=== PATIENT | female | born 1990 | race Asian ===

== ENCOUNTER → 2016-12-05 | Outpatient (CLI) | payer OTHER | END | disposition home or self-care (01) | LOC: C.PAPS 13:21 | PROVIDERS: ATTEND Obstetrics & Gynecology | DX: Z12.4 Encounter for screening for malignant neoplasm of cervix (principal) ==

== ENCOUNTER → 2016-12-20 | Outpatient (CLI) | payer OTHER ==
[2016-12-20 12:18] LABS: URINE APPEARANCE CLOUDY (CLEAR); URINE BILIRUBIN NEG (NEG); URINE COLOR DK YELLOW; URINE EPITHELIAL CELL AUTO >30 /lpf (0-5); URINE NITRITE NEG (NEG); URINE PH 7.5 (4.5-7.5); URINE SPECIFIC GRAVITY 1.028 (1.000-1.030); UROBILINOGEN NEG (NEG)
[2016-12-20 12:21] LABS: MANUAL MICROSCOPIC REQUIRED? NO; REVIEW REQ? YES
== END | disposition home or self-care (01) ==
LOC: C.LABSPEC 11:29
PROVIDERS: ATTEND Obstetrics & Gynecology
DX: R39.9 Unspecified symptoms and signs involving the genitourinary system (principal)

== ENCOUNTER → 2017-01-20 | Outpatient (CLI) | payer OTHER ==
[2017-01-20 13:41] LABS: GTGD 50 Grams
[2017-01-21 14:02] LABS: AFP CONCENTRATION 27.6 NG/ML; AFP MULTIPLE OF MEDIAN 0.73; AFPTS GESTATIONAL AGE 16.1 WEEKS; AFPTS INSULIN DEP DIABETIC? NO; AFPTS MATERNAL WT 121 LBS; ESTRIOL MULTIPLE OF MEDIAN 0.85; HISTORY OF NTD NO; INHIBIN A 174 PG/ML; INHIBIN A MOM 0.87; REPEAT SAMPLE? NO; hCG MULTIPLE OF MEDIAN 0.74
== END | disposition home or self-care (01) ==
LOC: C.LAB1850 09:17
PROVIDERS: ATTEND Obstetrics & Gynecology
DX: Z34.82 Encounter for supervision of other normal pregnancy, second trimester (principal)

== ENCOUNTER 2017-02-09 18:12 | Emergency (ER) | payer OTHER ==
[~2017-02-09] VITALS: Ht 160 cm; Wt 64.6 kg
[2017-02-09 18:22] VITALS: TEMP 36.6; Ht 160 cm; Wt 64.6 kg
[2017-02-09] MEDS ORDERED: SODIUM CHLORIDE 0.9% 1000ML 1,000 ML IV STA ×2 (18:35→19:33)
[2017-02-09 18:57] LABS: BASO % 0.1 %; BASO ABS # 0.01 K/uL (0-0.2); EOS % 0.6 %; EOS ABS # 0.05 K/uL (0-0.5); HEMATOCRIT 30.1 % (37-47); HEMOGLOBIN 10.7 g/dL (12.0-16.0); IG# 0.04 K/uL (0.00-0.02); LYMPH ABS # 2.06 K/uL (1.2-3.4); MEAN CELL VOLUME 89.9 fL (80-100); MEAN CORPUSCULAR HEMOGLOBIN 31.9 pg (25-34); MEAN CORPUSCULAR HGB CONC 35.5 g/dl (32-36); MEAN PLATELET VOLUME 9.5 fL (7.4-10.4); MONO % 6.2 %; MONO ABS # 0.51 K/uL (0.11-0.59); NEUT % 67.6 %; NEUT ABS # 5.56 K/uL (1.4-6.5); PLATELET COUNT 107 K/uL (130-400); RED CELL DISTRIBUTION WIDTH CV 12.6 % (11.5-14.5); RED CELL DISTRIBUTION WIDTH SD 40.8 fL (36.4-46.3); WHITE BLOOD COUNT 8.23 K/uL (4.8-10.8)
[2017-02-09 19:14] LABS: ALBUMIN 3.4 gm/dl (3.4-5.0); ALT/SGPT 16 U/L (12-78); AST/SGOT 30 U/L (15-37); BLOOD UREA NITROGEN 9 mg/dl (7-18); CALCIUM 8.5 mg/dl (8.5-10.1); CARBON DIOXIDE 24 mmol/L (21-32); CREATININE 0.51 mg/dl (0.60-1.20); GLUCOSE 89 mg/dl (70-99); LIPASE 220 U/L (73-393); POTASSIUM 3.3 mmol/L (3.5-5.1); SODIUM 136 mmol/L (136-145)
[2017-02-09 19:17] LABS: ALKALINE PHOSPHATASE 50 U/L (45-117); TOTAL PROTEIN 7.1 gm/dl (6.4-8.2)
--- NOTE | 2017-02-09 19:20 | DIAGNOSTIC IMAGING REPORT ---
GALLBLADDER-ABD LIMITED CLINICAL HISTORY: eval for cholecystitis pain. TECHNIQUE: Ultrasound COMPARISON STUDY: None FINDINGS: Multiple small gallstones with a small amount of sludge within the gallbladder lumen. No pericholecystic fluid. Gallbladder wall 2 mm. Normal caliber bile ducts with the common bile duct 6 mm. Liver is uniform throughout. Pancreas and right kidney are unremarkable. IMPRESSION: Small/moderate amount of small gallstones and sludge within the gallbladder lumen. Normal caliber bile duct. Otherwise negative study. The above report was generated using voice recognition software. It may contain grammatical, syntax or spelling errors. Electronically signed by: Mian Elaine M.D. 02/09/2017 7:18 PM Dictated Date/Time: 02/09/2017 7:17 PM
[2017-02-09] MEDS ORDERED: LIDOCAINE HCL 2% VISC SOLN 20 ML UDC ONE (19:25)
[2017-02-09] MEDS ORDERED: ALUMINUM/MAGNESIUM SUSP 30 ML UDC ONE (19:25)
[2017-02-09] MEDS ORDERED: NURSING VERBAL MED ORDER ONE (19:40)
[2017-02-09] MEDS ORDERED: FAMO20TA9 PO (20:59)
[2017-02-09 21:07] VITALS: BP 89/55; PULSE 87; O2SAT 100
--- NOTE | 2017-02-09 23:21 | EMERGENCY ROOM VISIT NOTE ---
History Report prepared by Kylee: Elsy Cox Under the Supervision of: Dr. Matias Arriola M.D. First contact with patient: 18:25 Chief Complaint: ABDOMINAL PAIN Stated Complaint: ABD PAIN History of Present Illness The patient is a 26 year old female who presents to the Emergency Room with complaints of constant abdominal pain beginning 45 minutes ago. The patient describes her pain as "burning". She states her pain is central to her upper abdomen and does not radiate anywhere. She denies having this pain before. She denies any fever, vomiting, urinary symptoms, chest pain, shortness of breath, vaginal bleeding, pelvic pain, diarrhea, or black or bloody stools. The patient is four months . This is the patient's second and she denies any complications with her first . History was gathered using language interpreting service. 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 A total of 10 systems reviewed and were otherwise negative. Past Medical & Surgical Medical Problems: (1) No Known Active Medical Problems Family History Patient reports no known family medical history. Social History Marital Status: Housing Status: lives with family Current/Historical Medications Scheduled Famotidine (Pepcid), 1 TAB PO BID Multivit/Min/Iron/Fol Ac/Pren ( Vitamin), 1 TAB PO DAILY Allergies Coded Allergies: No Known Allergies (Unverified , 02/09/17) Physical Exam Vital Signs Date Time Temp Pulse Resp B/P (MAP) Pulse Ox O2 Delivery O2 Flow Rate FiO2 02/09/17 21:07 87 16 89/55 100 Room Air 02/09/17 20:15 90 16 93/55 100 Room Air 02/09/17 19:19 78 16 82/46 100 Room Air 02/09/17 18:22 36.6 71 18 90/56 100 Room Air Physical Exam Constitutional: Vital signs reviewed. Eyes: Pupils are equal round reactive to light. Conjunctiva are noninjected. ENT: Pharynx is clear without erythema or exudate. Mucous membranes are moist. Neck supple without meningeal signs. Respiratory: Clear to auscultation bilaterally. Breath sounds are equal bilaterally. Cardiovascular: Regular rate and rhythm. No rubs or gallops. GI: Epigastric tenderness, no guarding. Soft and nondistended. Bowel sounds are present. Musculoskeletal: No peripheral edema. No lower extremity tenderness. Integumentary: No cyanosis. Neurological: The patient is awake and alert. No focal deficits. Psychiatric: Anxious appearing. Medical Decision & Procedures ER Provider Diagnostic Interpretation: Radiology results as stated below per my review and the radiologist's interpretation: GALLBLADDER-ABD LIMITED FINDINGS: Multiple small gallstones with a small amount of sludge within the gallbladder lumen. No pericholecystic fluid. Gallbladder wall 2 mm. Normal caliber bile ducts with the common bile duct 6 mm. Liver is uniform throughout. Pancreas and right kidney are unremarkable. IMPRESSION: Small/moderate amount of small gallstones and sludge within the gallbladder lumen. Normal caliber bile duct. Otherwise negative study. The above report was generated using voice recognition software. It may contain grammatical, syntax or spelling errors. Electronically signed by: Mian Elaine M.D. Laboratory Results 02/09/17 18:45 Red Blood Count 3.35, Mean Corpuscular Volume 89.9, Mean Corpuscular Hemoglobin 31.9, Mean Corpuscular Hemoglobin Concent 35.5, Mean Platelet Volume 9.5, Neutrophils (%) (Auto) 67.6, Lymphocytes (%) (Auto) 25.0, Monocytes (%) (Auto) 6.2, Eosinophils (%) (Auto) 0.6, Basophils (%) (Auto) 0.1, Neutrophils # (Auto) 5.56, Lymphocytes # (Auto) 2.06, Monocytes # (Auto) 0.51, Eosinophils # (Auto) 0.05, Basophils # (Auto) 0.01 02/09/17 18:45 Test 02/09/17 18:25 02/09/17 18:45 Urine Color YELLOW Urine Appearance CLEAR (CLEAR) Urine pH 6.5 (4.5-7.5) Urine Specific [place] 1.023 (1.000-1.030) Urine Protein NEG (NEG) Urine Glucose (UA) NEG (NEG) Urine Ketones NEG (NEG) Urine Occult Blood 1+ (NEG) Urine Nitrite NEG (NEG) Urine Bilirubin NEG (NEG) Urine Urobilinogen NEG (NEG) Urine Leukocyte Esterase SMALL (NEG) Urine WBC (Auto) 5-10 /hpf (0-5) Urine RBC (Auto) 10-30 /hpf (0-4) Urine Hyaline Casts (Auto) 1-5 /lpf (0-5) Urine Epithelial Cells (Auto) >30 /lpf (0-5) Urine Bacteria (Auto) 1+ (NEG) White Blood Count 8.23 K/uL (4.8-10.8) Red Blood Count 3.35 M/uL (4.2-5.4) Hemoglobin 10.7 g/dL (12.0-16.0) Hematocrit 30.1 % (37-47) Mean Corpuscular Volume 89.9 fL (80-100) Mean Corpuscular Hemoglobin 31.9 pg (25-34) Mean Corpuscular Hemoglobin Concent 35.5 g/dl (32-36) Platelet Count 107 K/uL (130-400) Mean Platelet Volume 9.5 fL (7.4-10.4) Neutrophils (%) (Auto) 67.6 % Lymphocytes (%) (Auto) 25.0 % Monocytes (%) (Auto) 6.2 % Eosinophils (%) (Auto) 0.6 % Basophils (%) (Auto) 0.1 % Neutrophils # (Auto) 5.56 K/uL (1.4-6.5) Lymphocytes # (Auto) 2.06 K/uL (1.2-3.4) Monocytes # (Auto) 0.51 K/uL (0.11-0.59) Eosinophils # (Auto) 0.05 K/uL (0-0.5) Basophils # (Auto) 0.01 K/uL (0-0.2) RDW Standard Deviation 40.8 fL (36.4-46.3) RDW Coefficient of Variation 12.6 % (11.5-14.5) Immature Granulocyte % (Auto) 0.5 % Immature Granulocyte # (Auto) 0.04 K/uL (0.00-0.02) Anion Gap 8.0 mmol/L (3-11) Est Creatinine Clear Calc Drug Dose 148.5 ml/min Estimated GFR () > 150.0 Estimated GFR (Non- 130.9 BUN/Creatinine Ratio 17.0 (10-20) Calcium Level 8.5 mg/dl (8.5-10.1) Total Bilirubin 0.3 mg/dl (0.2-1) Direct Bilirubin < 0.1 mg/dl (0-0.2) Aspartate Amino Transf (AST/SGOT) 30 U/L (15-37) Alanine Aminotransferase (ALT/SGPT) 16 U/L (12-78) Alkaline Phosphatase 50 U/L (45-117) Total Protein 7.1 gm/dl (6.4-8.2) Albumin 3.4 gm/dl (3.4-5.0) Lipase 220 U/L (73-393) Laboratory results as reviewed by me. Medications Administered Medications (Trade) Dose Ordered Sig/Jas Route Start Time Stop Time Status Last Admin Dose Admin Sodium Chloride 1,000 ml @ 999 mls/hr Q1H1M STAT IV 02/09/17 18:35 02/09/17 19:35 DC 02/09/17 18:50 999 MLS/HR Al Hydroxide/Mg Hydroxide (Maalox Susp) 30 ml STK-MED ONCE .ROUTE 02/09/17 19:25 02/09/17 19:26 DC 02/09/17 19:48 30 ML Lidocaine HCl (Viscous Lidocaine 2% Soln) 20 ml STK-MED ONCE .ROUTE 02/09/17 19:25 02/09/17 19:26 DC 02/09/17 19:48 20 ML Sodium Chloride 1,000 ml @ 999 mls/hr Q1H1M STAT IV 02/09/17 19:33 02/09/17 20:33 DC 02/09/17 19:45 999 MLS/HR ED Course 1827: The patient was evaluated in room B11B. A complete history and physical exam was performed. 1834: Ordered Sodium Chloride 1000 ml @ 999 mls/hr IV. 1924: Ordered Lidocaine HCl 20 ml .ROUTE, Maalox Susp 30 ml .ROUTE. 1929: I spoke with Dr. Del Cid of Surgery. We discussed the patient and her results. He does not think its cholecystis. He states if we cannot get the patient pain free to admit the patient to OB or medicine and he will consult. 1932: Ordered Sodium Chloride 1000 ml @ 999 mls/hr IV. 1940: The patient feels much better after the GI cocktail. 2029: The patient's blood pressure is now 93/55. She reports her pain is almost completely gone. 2055: I reviewed discharge and return instruction with the patient and her using the cushion worker service. 2108: Upon reevaluation, the patient appeared to have improvement of her symptoms. I discussed tonight's findings with the patient. She verbalized agreement of the treatment plan. The patient was discharged home. Medical Decision This is a 26-year-old female presents with epigastric pain. Differential diagnosis includes cholelithiasis, cholecystitis, pancreatitis, duodenitis, GERD. I did perform a limited focused review of portions of the patient's old chart on the electronic medical record. The patient has had no recent pertinent visits to this hospital. I did evaluate the patient as noted above. The patient was assessed and reassessed using language interpreting services. She is presenting with epigastric pain without radiation. She has only had it for about 40 minutes prior to arrival. She does appear quite uncomfortable. IV access was established. I did treat patient with normal saline IV. I did order and personally review the patient's urinalysis as described above. The findings are equivocal. The patient denies having any urinary symptoms. Urine culture was sent. I did order and review the patient's blood work as noted in the electronic medical record. She has mild anemia. LFTs are unremarkable. Lipase is not elevated. I did order an ultrasound of the gallbladder. I did review the images myself as well as the radiology report as described above. She does have gallstones but no signs of cholecystitis. I did reassess the patient she is still having pain which she states is now getting worse and she was slightly hypertensive. I did discuss the case with general surgery on- call. He felt that if we could manage her pain she can go home otherwise he recommended admission to the medical or obstruction service for pain control. I did treat the patient with a GI cocktail. I did reassess the patient and she is feeling much better. This leads me to believe that her pain is not from her gallstones is more likely from gastritis or reflux. I did recommend she take Maalox as needed and she was given a prescription for Pepcid. She was advised follow up with her doctor and given return instructions as outlined below. I did review instructions with her and her via the Mandarin cushion worker. Medication Reconcilliation Current Medication List: was personally reviewed by me Blood Pressure Screening Patient's blood pressure: Low blood pressure Consults Time Called: 1924 Consulting Physician: Dr. Del Cid-Surgery Returned Call: [address] Del Cid of Surgery. We discussed the patient and her results. He does not think its cholecystis. He states if we cannot get the patient pain free to admit the patient to OB or medicine and he will consult Impression Primary Impression: Epigastric abdominal pain Additional Impressions: Cholelithiasis Second trimester Scribe Attestation The scribe's documentation has been prepared under my direct and personally reviewed by me in its entirety. I confirm that the note above accurately reflects all work, treatment, procedures, and medical decision making performed by me. Departure Information Dispostion Home / Self-Care Prescriptions Famotidine (PEPCID) 20 Mg Tab 1 TAB PO BID for 20 Days, #40 TAB 5 Refills Prov: Matias Arriola M.D. 02/09/17 Referrals No Doctor, Assigned (PCP) Forms HOME CARE DOCUMENTATION FORM, IMPORTANT VISIT INFORMATION Patient Instructions Gallstones Dc, My [facility] Additional Instructions You have been examined and treated today on an emergency basis only. This is not a substitute for, or an effort to provide, complete comprehensive medical care. It is impossible to recognize and treat all injuries or illnesses in a single emergency department visit. It is therefore important that you follow up closely with your physician. Call as soon as possible for an appointment. Return for worsening symptoms or if you develop fever, vomiting, black or tarry stools, chest pain, shortness of breath or any other concerning symptoms. Use Maalox as needed. Problem Qualifiers Additional Impressions: Cholelithiasis Cholelithiasis location: gallbladder Cholecystitis presence: with cholecystitis Cholecystitis acuity: unspecified acuity Biliary obstruction: without biliary obstruction Qualified Codes: K80.00 - Calculus of gallbladder with acute cholecystitis without obstruction
[2017-06-27] MEDS ORDERED: SUCR1TAB29 PO (10:32)
[2017-06-27] MEDS ORDERED: TYLENOL PO (10:32)
[2017-06-27] MEDS ORDERED: FAMO20TA11 PO (11:24)
[2017-08-08] MEDS ORDERED: ACET-1256 PO (22:35)
[2017-08-12] MEDS ORDERED: OXYC-57 PO (18:38)
== END 2017-02-09 21:12 | disposition home or self-care (01) ==
LOC: EDBD 18:12 → C.EDB 18:13
DX: O99.612 Diseases of the digestive system complicating pregnancy, second trimester (principal); K80.00 Calculus of gallbladder with acute cholecystitis without obstruction; R10.13 Epigastric pain; Z3A.16 16 weeks gestation of pregnancy

== ENCOUNTER 2017-03-13 18:39 | Emergency (ER) | payer OTHER ==
[~2017-03-13 18:39] MED LIST: FAMO20TA9 PO
[2017-03-13 18:41] VITALS: TEMP 36.4
[2017-03-13] MEDS ORDERED: GI COCKTAIL PO STA (18:55)
[2017-03-13] MEDS ORDERED: SODIUM CHLORIDE 0.9% 1000ML 1,000 ML IV STA (18:55)
[2017-03-13] MEDS ORDERED: ALUMINUM/MAGNESIUM SUSP 30 ML UDC ONE ×2 (18:59→20:35)
[2017-03-13] MEDS ORDERED: LIDOCAINE HCL 2% VISC SOLN 20 ML UDC ONE ×2 (18:59→20:35)
[2017-03-13] MEDS ORDERED: ONDANSETRON INJ 2 MG/ML 2 ML VIAL ONE (19:08)
[2017-03-13 19:16] LABS: BASO % 0.1 %; BASO ABS # 0.01 K/uL (0-0.2); EOS % 0.2 %; EOS ABS # 0.02 K/uL (0-0.5); HEMATOCRIT 32.2 % (37-47); IG# 0.08 K/uL (0.00-0.02); LYMPH % 13.9 %; LYMPH ABS # 1.56 K/uL (1.2-3.4); MEAN CORPUSCULAR HEMOGLOBIN 31.1 pg (25-34); MEAN CORPUSCULAR HGB CONC 34.2 g/dl (32-36); MEAN PLATELET VOLUME 9.2 fL (7.4-10.4); MONO % 4.8 %; MONO ABS # 0.54 K/uL (0.11-0.59); NEUT % 80.3 %; PLATELET COUNT 133 K/uL (130-400); RED CELL DISTRIBUTION WIDTH CV 12.9 % (11.5-14.5); RED CELL DISTRIBUTION WIDTH SD 42.4 fL (36.4-46.3); WHITE BLOOD COUNT 11.21 K/uL (4.8-10.8)
[2017-03-13] MEDS ORDERED: PRENTAB26 PO (19:27)
[2017-03-13 19:36] LABS: ALBUMIN 3.5 gm/dl (3.4-5.0); ALT/SGPT 32 U/L (12-78); BLOOD UREA NITROGEN 11 mg/dl (7-18); CALCIUM 8.9 mg/dl (8.5-10.1); CARBON DIOXIDE 23 mmol/L (21-32); CREATININE 0.52 mg/dl (0.60-1.20); GLUCOSE 110 mg/dl (70-99); LIPASE 236 U/L (73-393); POTASSIUM 3.1 mmol/L (3.5-5.1); SODIUM 137 mmol/L (136-145)
[2017-03-13 19:38] LABS: ALKALINE PHOSPHATASE 69 U/L (45-117); AST/SGOT 72 U/L (15-37); TOTAL PROTEIN 7.5 gm/dl (6.4-8.2)
[2017-03-13] MEDS ORDERED: FAMO20TA11 PO (19:48)
--- NOTE | 2017-03-13 20:10 | DIAGNOSTIC IMAGING REPORT ---
ABDOMINAL ULTRASOUND, RIGHT UPPER QUADRANT HISTORY: Epigastric and right upper quadrant abdominal pain. . COMPARISON: Right upper quadrant ultrasound February 09, 2017. FINDINGS: Liver is sonographically normal. There is no biliary ductal dilatation. Common bile duct measures 5 m in caliber. There are multiple stones within the gallbladder as well as gallbladder sludge. No sonographic Pro sign was reported. There is no gallbladder wall thickening. No pericholecystic fluid was identified. The pancreatic body is normal. The pancreatic head and tail are partially obscured. There is no right hydronephrosis. Note that a dedicated anatomical survey was not performed. heart rate is normal at 140 bpm. IMPRESSION: 1. Cholelithiasis. No sonographic evidence of acute cholecystitis. 2. No biliary ductal dilatation. 3. Normal heart rate. Please note that a dedicated ultrasound was not performed. Electronically signed by: Nish Koehler M.D. 03/13/2017 8:09 PM Dictated Date/Time: 03/13/2017 8:06 PM
[2017-03-13] MEDS ORDERED: SUCR1TAB29 PO (22:13)
[2017-03-13 22:25] VITALS: BP 92/64; PULSE 84; O2SAT 99
--- NOTE | 2017-03-14 00:30 | EMERGENCY ROOM VISIT NOTE ---
History Report prepared by Kylee: Nicole Elizondo Under the Supervision of: Dr. Oscar Newman D.O. First contact with patient: 18:46 Chief Complaint: ABDOMINAL PAIN Stated Complaint: STOMACH HURTS History of Present Illness The patient is a 26 year old female who presents to the Emergency Room with complaints of constant RUQ abdominal pain starting 2 hours ago. She was seen in the ED for this pain 2 months ago and had an ultrasound. She was found to have gallstones. She describes the pain as sharp and severe. The pain goes through to her back. She is nauseous. She denies any vomiting, fever, chest pain, or urinary symptoms. She is 23 weeks . This is her 2nd . The symptoms are exactly same as she had back in February 09. Source of History: patient, family Onset: 2 hours ago Position: abdomen (RUQ) Symptom Intensity: severe Quality: sharp Timing: constant Associated Symptoms: + nausea, + back pain, No fevers, No chest pain, No vomiting, No urinary symptoms Review of Systems See HPI for pertinent positives & negatives. A total of 10 systems reviewed and were otherwise negative. Past Medical & Surgical Medical Problems: (1) No Known Active Medical Problems Family History Patient reports no known family medical history. Social History Smoking Status: Never Smoker Marital Status: Housing Status: lives with family Current/Historical Medications Scheduled Famotidine (Pepcid), 20 MG PO BID Multivit/Min/Iron/Fol Ac/Pren ( Vitamin), 1 TAB PO DAILY Sucralfate (Carafate), 1 GM PO TID Allergies Coded Allergies: No Known Allergies (Unverified , 02/09/17) Physical Exam Vital Signs Date Time Temp Pulse Resp B/P (MAP) Pulse Ox O2 Delivery O2 Flow Rate FiO2 03/13/17 22:25 84 20 92/64 99 03/13/17 20:38 80 18 87/57 100 Room Air 03/13/17 19:11 65 03/13/17 18:57 67 18 93/62 100 Room Air 03/13/17 18:41 36.4 68 22 83/52 100 Room Air Physical Exam GENERAL: Sitting up in bed, holding epigastric region, mild distress EYE EXAM: normal conjunctiva. OROPHARYNX: no exudate, no erythema, lips, buccal mucosa, and tongue normal and mucous membranes are moist NECK: supple, no nuchal rigidity, no adenopathy, non-tender LUNGS: Clear to auscultation. Normal chest wall mechanics HEART: no murmurs, S1 normal and S2 normal ABDOMEN: gravid uterus with tenderness to palpation in the epigastric region, normo-active bowel sounds, no masses, no rebound or guarding. heart rate 141. BACK: Back is symmetrical on inspection and there is no deformity, no midline tenderness, no CVA tenderness. SKIN: no rashes and no bruising UPPER EXTREMITIES: upper extremities are grossly normal. LOWER EXTREMITIES: No pitting edema. NEURO EXAM: Normal sensorium, cranial nerves II-XII grossly intact, normal speech, no gross weakness of arms, no gross weakness of legs. Medical Decision & Procedures ER Provider Diagnostic Interpretation: Radiology results as stated below per my review and the radiologist's interpretation: ABDOMINAL ULTRASOUND, RIGHT UPPER QUADRANT HISTORY: Epigastric and right upper quadrant abdominal pain. . COMPARISON: Right upper quadrant ultrasound February 09, 2017. FINDINGS: Liver is sonographically normal. There is no biliary ductal dilatation. Common bile duct measures 5 m in caliber. There are multiple stones within the gallbladder as well as gallbladder sludge. No sonographic Pro sign was reported. There is no gallbladder wall thickening. No pericholecystic fluid was identified. The pancreatic body is normal. The pancreatic head and tail are partially obscured. There is no right hydronephrosis. Note that a dedicated anatomical survey was not performed. heart rate is normal at 140 bpm. IMPRESSION: 1. Cholelithiasis. No sonographic evidence of acute cholecystitis. 2. No biliary ductal dilatation. 3. Normal heart rate. Please note that a dedicated ultrasound was not performed. Electronically signed by: Nish Koehler M.D. 03/13/2017 8:09 PM Dictated Date/Time: 03/13/2017 8:06 PM Laboratory Results 03/13/17 19:00 Red Blood Count 3.54, Mean Corpuscular Volume 91.0, Mean Corpuscular Hemoglobin 31.1, Mean Corpuscular Hemoglobin Concent 34.2, Mean Platelet Volume 9.2, Neutrophils (%) (Auto) 80.3, Lymphocytes (%) (Auto) 13.9, Monocytes (%) (Auto) 4.8, Eosinophils (%) (Auto) 0.2, Basophils (%) (Auto) 0.1, Neutrophils # (Auto) 9.00, Lymphocytes # (Auto) 1.56, Monocytes # (Auto) 0.54, Eosinophils # (Auto) 0.02, Basophils # (Auto) 0.01 03/13/17 19:00 Test 03/13/17 19:00 03/13/17 20:47 White Blood Count 11.21 K/uL (4.8-10.8) Red Blood Count 3.54 M/uL (4.2-5.4) Hemoglobin 11.0 g/dL (12.0-16.0) Hematocrit 32.2 % (37-47) Mean Corpuscular Volume 91.0 fL (80-100) Mean Corpuscular Hemoglobin 31.1 pg (25-34) Mean Corpuscular Hemoglobin Concent 34.2 g/dl (32-36) Platelet Count 133 K/uL (130-400) Mean Platelet Volume 9.2 fL (7.4-10.4) Neutrophils (%) (Auto) 80.3 % Lymphocytes (%) (Auto) 13.9 % Monocytes (%) (Auto) 4.8 % Eosinophils (%) (Auto) 0.2 % Basophils (%) (Auto) 0.1 % Neutrophils # (Auto) 9.00 K/uL (1.4-6.5) Lymphocytes # (Auto) 1.56 K/uL (1.2-3.4) Monocytes # (Auto) 0.54 K/uL (0.11-0.59) Eosinophils # (Auto) 0.02 K/uL (0-0.5) Basophils # (Auto) 0.01 K/uL (0-0.2) RDW Standard Deviation 42.4 fL (36.4-46.3) RDW Coefficient of Variation 12.9 % (11.5-14.5) Immature Granulocyte % (Auto) 0.7 % Immature Granulocyte # (Auto) 0.08 K/uL (0.00-0.02) Anion Gap 9.0 mmol/L (3-11) Estimated GFR () > 150.0 Estimated GFR (Non- 130.0 BUN/Creatinine Ratio 21.6 (10-20) Calcium Level 8.9 mg/dl (8.5-10.1) Total Bilirubin 0.4 mg/dl (0.2-1) Direct Bilirubin 0.2 mg/dl (0-0.2) Aspartate Amino Transf (AST/SGOT) 72 U/L (15-37) Alanine Aminotransferase (ALT/SGPT) 32 U/L (12-78) Alkaline Phosphatase 69 U/L (45-117) Total Protein 7.5 gm/dl (6.4-8.2) Albumin 3.5 gm/dl (3.4-5.0) Lipase 236 U/L (73-393) Urine Color YELLOW Urine Appearance CLEAR (CLEAR) Urine pH 7.5 (4.5-7.5) Urine Specific [place] 1.014 (1.000-1.030) Urine Protein NEG (NEG) Urine Glucose (UA) NEG (NEG) Urine Ketones 1+ (NEG) Urine Occult Blood NEG (NEG) Urine Nitrite NEG (NEG) Urine Bilirubin NEG (NEG) Urine Urobilinogen NEG (NEG) Urine Leukocyte Esterase MODERATE (NEG) Urine WBC (Auto) 1-5 /hpf (0-5) Urine RBC (Auto) 5-10 /hpf (0-4) Urine Hyaline Casts (Auto) 0 /lpf (0-5) Urine Epithelial Cells (Auto) >30 /lpf (0-5) Urine Bacteria (Auto) NEG (NEG) Urine Test POS (NEG) Laboratory results per my review. Medications Administered Medications (Trade) Dose Ordered Sig/Jas Route Start Time Stop Time Status Last Admin Dose Admin Sodium Chloride 1,000 ml @ 999 mls/hr Q1H1M STAT IV 03/13/17 18:55 03/13/17 19:55 DC 03/13/17 19:00 999 MLS/HR Al Hydroxide/Mg Hydroxide (Maalox Susp) 30 ml STK-MED ONCE .ROUTE 03/13/17 18:59 03/13/17 19:00 DC 03/13/17 19:01 30 ML Lidocaine HCl (Viscous Lidocaine 2% Soln) 20 ml STK-MED ONCE .ROUTE 03/13/17 18:59 03/13/17 19:00 DC 03/13/17 19:01 20 ML Ondansetron HCl (Zofran Inj) 4 mg STK-MED ONCE .ROUTE 03/13/17 19:08 03/13/17 19:09 DC 03/13/17 19:08 4 MG Al Hydroxide/Mg Hydroxide (Maalox Susp) 30 ml STK-MED ONCE .ROUTE 03/13/17 20:35 03/13/17 20:36 DC 03/13/17 20:35 30 ML Lidocaine HCl (Viscous Lidocaine 2% Soln) 20 ml STK-MED ONCE .ROUTE 03/13/17 20:35 03/13/17 20:36 DC 03/13/17 20:35 20 ML ED Course ED COURSE: Vital signs were reviewed and showed hypotension. The patients medical record was reviewed The above diagnostic studies were performed and reviewed. ED treatments and interventions as stated above. 1848: The patient was evaluated in room B2. A complete history and physical examination was performed. 1855: NSS 1000 ml @ 999 mls/hr IV, Lidocaine HCl 20 ml PO, Maalox Susp 30 ml PO. 1907: Zofran Inj 4 mg IV. 2034: Lidocaine HCl 20 ml PO, Maalox Susp 30 ml PO. 2044: I reevaluated the patient. She is feeling a lot better. 2150: I discussed the patient's case with Dr. Simeon, [facility] [employer] Examin[employer]. She is in agreement with the plan. 6: Upon reevaluation, the patient is resting comfortably. I discussed my findings with the patient and her family and they understand and agree with the treatment plan. Based on the patients age, coexisting illnesses, exam and lab findings the decision to treat as an outpatient was made. The patient remained stable while under my care. The patient appeared well at the time of discharge. Medical Decision Differential diagnoses includes but is not limited to gastritis, peptic ulcer disease, GERD, gallbladder disease, pancreatitis, small bowel obstruction, acute coronary syndrome, pericarditis, ischemic bowel, irritable bowel disease, irritable bowel syndrome, appendicitis, diverticulitis, malignancy, hernia, urinary tract infection, torsion, /ectopic , perforation, trauma, infectious. Patient is a 18-year-old female who presents to ER with severe epigastric abdominal pain. It is reproducible on exam. She has had this before in the past and improved significantly following a GI cocktail. She does have known gallstones. She is 24 weeks . CBC shows a mild leukocytosis. BMP with a mild hypokalemia at 3.1. Bilirubin, LFTs and lipase is normal. UA without bacteria. Bedside ultrasound shows IUP with heart rate of 140- 150. No contractions. This is her second . No lower abdominal pain. Pain improved significantly following one episode of vomiting, Zofran and a GI cocktail. She was discharged with complete resolution of her symptoms requesting to eat. Did discuss with OB and they'll follow-up as an outpatient. No signs of HELLP. Discussed with Pt concerning signs and symptoms to watch out for. Pt was instructed to follow up with their PCP and discussed with the patient their option to return to the ED at anytime for persistent or worsening symptoms. The appropriate anticipatory guidance and out-patient management, including indications for return to the emergency department, were explained at length to the patient and understood. Medication Reconcilliation Current Medication List: was personally reviewed by me Blood Pressure Screening Patient's blood pressure: Low blood pressure Consults Time Called: 2146 Consulting Physician: Dr. Simeon, [facility] [employer] Examiner Returned Call: 2150 I discussed the patient's case with her. She is in agreement with the plan. Impression Primary Impression: Gastritis Additional Impression: Gallstone Scribe Attestation The scribe's documentation has been prepared under my direction and personally reviewed by me in its entirety. I confirm that the note above accurately reflects all work, treatment, procedures, and medical decision making performed by me. Departure Information Dispostion Home / Self-Care Prescriptions Sucralfate (CARAFATE) 1 Gm Tab 1 GM PO TID for gastritis, #30 TAB Prov: Oscar Newman DO 03/13/17 Referrals Terrence Steven M.D. (PCP) Forms HOME CARE DOCUMENTATION FORM, IMPORTANT VISIT INFORMATION Patient Instructions Gastritis Tx, My [facility] Additional Instructions Please follow up with your primary care doctor with in the next 24 hours. Any worsening of your symptoms, please return to the ED immediately. This includes any fevers greater than 100.4, worsening pain, chest pain, shortness breath, persistent nausea, vomiting, unable to eat or drink, or any other concerning signs or symptoms from your standpoint. Any vaginal bleeding or vaginal discharge please return immediately to the ER. Please follow up with [employer] within the next 2-3 days. Problem Qualifiers Primary Impression: Gastritis Gastritis type: unspecified gastritis Chronicity: unspecified Gastritis bleeding: presence of bleeding unspecified Qualified Codes: K29.70 - Gastritis, unspecified, without bleeding Additional Impression: Gallstone Cholecystitis presence: without cholecystitis Biliary obstruction: without biliary obstruction Qualified Codes: K80.20 - Calculus of gallbladder without cholecystitis without obstruction
== END 2017-03-13 22:26 | disposition home or self-care (01) ==
LOC: C.EDB 18:40
DX: K29.70 Gastritis, unspecified, without bleeding (principal); K80.20 Calculus of gallbladder without cholecystitis without obstruction; Z33.1 Pregnant state, incidental

== ENCOUNTER 2017-04-09 07:39 | Outpatient (CLI) | payer OTHER ==
[~2017-04-09 07:39] MED LIST changes: +FAMO20TA11 PO; -FAMO20TA9 PO; +PRENTAB26 PO
[2017-04-09] MEDS ORDERED: LACTATED RINGER'S 1000ML 500 ML IV ONE (07:53)
[2017-04-09] MEDS ORDERED: LACTATED RINGER'S 1000ML 1,000 ML IV SCH (07:53)
[2017-04-09] MEDS ORDERED: PREN1TAB PO (09:16)
[2017-04-09] MEDS ORDERED: CEPH500C PO (11:34)
--- NOTE | 2017-04-10 11:41 | EDITING REQUIRED CODING QUERY ---
DIAGNOSIS NEEDED To promote full compliance with coding requirements relating to patient care, physician participation is requested in all cases of business asst uncertainty. Please assist us with the question(s) below: Coding Question: The patient received care in labor and delivery on 04/09/17 as noted within the record. Please document the diagnosis that is being addressed by the medication/treatment. Provider Response: DIAGNOSIS: 27w abdominal pain. (my note for this patient is in regular meditech, as a progress note, because she went to ER from L&D, not in QS) WEEKS OF GESTATION: Thank you for your assistance, Raegan Portillo - Disk Sander
== END 2017-04-09 08:40 | disposition home or self-care (01) ==
LOC: C.OPB 07:39 → C.LD 07:39 → C.OPB 08:40
PROVIDERS: ATTEND Obstetrics & Gynecology
DX: O26.892 Other specified pregnancy related conditions, second trimester (principal); R10.9 Unspecified abdominal pain; Z3A.27 27 weeks gestation of pregnancy

== ENCOUNTER 2017-04-09 08:55 | Emergency (ER) | payer OTHER ==
[2017-04-09 09:00] VITALS: TEMP 36.5
[2017-04-09] MEDS ORDERED: PREN1TAB PO (09:16)
[2017-04-09] MEDS ORDERED: METOCLOPRAMIDE HCL INJ 5 MG/ML 2 ML VIAL IV STA (09:32)
[2017-04-09] MEDS ORDERED: SODIUM CHLORIDE 0.9% 1000ML 1,000 ML IV STA (09:32)
[2017-04-09 10:18] LABS: HEMATOCRIT 31.5 % (37-47); HEMOGLOBIN 10.6 g/dL (12.0-16.0); MEAN CELL VOLUME 91.3 fL (80-100); MEAN CORPUSCULAR HEMOGLOBIN 30.7 pg (25-34); MEAN CORPUSCULAR HGB CONC 33.7 g/dl (32-36); MEAN PLATELET VOLUME 9.2 fL (7.4-10.4); PLATELET COUNT 113 K/uL (130-400); RED CELL DISTRIBUTION WIDTH CV 13.3 % (11.5-14.5); RED CELL DISTRIBUTION WIDTH SD 44.4 fL (36.4-46.3); WHITE BLOOD COUNT 9.21 K/uL (4.8-10.8)
[2017-04-09 10:38] LABS: ALBUMIN 2.9 gm/dl (3.4-5.0); ALT/SGPT 51 U/L (12-78); AST/SGOT 132 U/L (15-37); BLOOD UREA NITROGEN 8 mg/dl (7-18); CALCIUM 8.3 mg/dl (8.5-10.1); CARBON DIOXIDE 22 mmol/L (21-32); CREATININE 0.49 mg/dl (0.60-1.20); GLUCOSE 89 mg/dl (70-99); LIPASE 202 U/L (73-393); POTASSIUM 3.6 mmol/L (3.5-5.1); SODIUM 135 mmol/L (136-145)
[2017-04-09 10:39] LABS: BASO % 0.1 %; BASO ABS # 0.01 K/uL (0-0.2); IG# 0.14 K/uL (0.00-0.02); LYMPH % 9.3 %; LYMPH ABS # 0.86 K/uL (1.2-3.4); MONO % 3.9 %; MONO ABS # 0.36 K/uL (0.11-0.59); NEUT % 85.2 %; NEUT ABS # 7.84 K/uL (1.4-6.5)
[2017-04-09 10:41] LABS: ALKALINE PHOSPHATASE 80 U/L (45-117); TOTAL PROTEIN 6.4 gm/dl (6.4-8.2); URIC ACID 4.5 mg/dl (2.6-7.2)
--- NOTE | 2017-04-09 10:52 | DIAGNOSTIC IMAGING REPORT ---
GALLBLADDER-ABD LIMITED CLINICAL HISTORY: ABDOMINAL PAIN/GI pain. Nausea. TECHNIQUE: Ultrasound COMPARISON STUDY: 2017 FINDINGS: Multiple small gallstones are again noted. No abnormal pericholecystic fluid. Common bile duct 5 mm. Mild fatty infiltration of the liver. Pancreas and right kidney are unremarkable. IMPRESSION: Multiple small gallstones. Normal caliber bile duct. Mild fatty infiltration of liver. No change from the prior study. The above report was generated using voice recognition software. It may contain grammatical, syntax or spelling errors. Electronically signed by: Mian Elaine M.D. 04/09/2017 10:51 AM Dictated Date/Time: 04/09/2017 10:50 AM
--- NOTE | 2017-04-09 10:53 | Progress Note ---
Progress Note Date of Service Apr 09, 2017. Progress Note Labor & Delivery Note S: Patient is 26yo @ [birth year] who presented to L&D with severe abdominal pain since 2am today. She speaks Mandarin, her is helping interpret while we wait for the head of precision targeting phone. This pain is in her epigastric area, right upper quadrant, and mid-back. She has been nauseated since the start of the pain and has vomited 5 times. Streaks of blood in vomitus, per . Was seen in ER for gallstones 03/13/17. + movement, no vaginal bleeding, no leaking of fluid, no contractions. No obstetric complaints. is complicated by h/o due to breech presentation in G1, plans for repeat for this . Patient reports +nausea/vomiting, one episode of watery stool, feeling somewhat subjectively feverish/chills since the pain started. O: Afebrile, vitals stable. Gen: AAOx3 severe discomfort. Writhing on bed. Abd: epigastric area and RUQ is tender, but no rebound or guarding. Gravid uterus is nontender, no s/s chorio or abruption. Ext: no edema, no calf tenderness Sterile speculum exam: cervix visually closed, no vaginal bleeding or pooling of fluid. FHT 150s. [place]: no ctx. A: 26yo @ [birth year] 04/16 with severe epigastric pain I do not believe this is an obstetric cause for the pain - uterus is nontender, FHT normal, cervix is closed. Patient does not appear to be in labor. High on the differential list would be gallstones, as patient was seen for gallstones in the ER in the past. Other possible etiology could be stomach ulcer , pancreas. As blood pressure is normal, have low suspicion for preeclampsia/HELLP syndrome , however due to RUQ pain will recommend preeclampsia labs (CBC, CMP, uric acid) . P: Since I believe this patient's pain and nausea/vomiting is a non-obstetric issue, and think it is most likely to be related to gallstones, I called the ER and spoke with Kam Garcia PA-C about transfer of patient to the ER for further evaluation. I believe imaging/labs/eval/management will be expedited if the patient is transferred to the ER. Since the patient will have labs drawn upon being seen in the ER, I asked that the ER perform CBC, CMP, and uric acid to rule out an atypical preeclampsia in addition to any labs/imaging they feel is appropriate for further workup. Will transfer patient to ER for further eval at this time.
[2017-04-09] MEDS ORDERED: CEFTRIAXONE SOD INJ 1 GM ADDVIAL IV STA (11:21)
[2017-04-09] MEDS ORDERED: GI COCKTAIL PO ONE (11:30)
[2017-04-09] MEDS ORDERED: CEPH500C PO (11:34)
--- NOTE | 2017-04-09 11:35 | EMERGENCY ROOM VISIT NOTE ---
History Report prepared by Kylee: Tika Darden Under the Supervision of: Dr. Dhruv Garrett D.O. 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 He reports that her pain woke her up this morning around 2am. The patient is complaining of epigastric abdominal pain radiating into her back, as well as nausea and vomiting. She has had 5 episodes of vomiting today. reports there has been some blood in her vomit. The patient rates her pain as a 10/10 in severity. She has had similar episodes of pain in the past but states that this episode is much more severe and has lasted longer than previous episodes. She has a history of reflux and gallstones. states that in the past she has been given medication to drink which has alleviated her symptoms. The patient is 5 months . She was sent to the ED after being evaluated by L& D today. 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 Review of Systems See HPI for pertinent positives & negatives. A total of 10 systems reviewed and were otherwise negative. Past Medical & Surgical Medical Problems: (1) No Known Active Medical Problems Family History Patient reports no known family medical history. Social History Smoking Status: Never Smoker Marital Status: Housing Status: lives with family Current/Historical Medications Scheduled Cephalexin Monohydrate (Keflex), 500 MG PO QID Famotidine (Pepcid), 20 MG PO BID Vit W/ Ferrous Fumara (Preplus 27-1 mg), TAB PO DAILY Allergies Coded Allergies: No Known Allergies (Unverified , 04/09/17) Physical Exam Vital Signs Date Time Temp Pulse Resp B/P (MAP) Pulse Ox O2 Delivery O2 Flow Rate FiO2 04/09/17 10:58 81 16 90/60 100 04/09/17 09:00 36.5 69 20 90/57 100 Physical Exam CONSTITUTIONAL/VITAL SIGNS: Reviewed / noted above. GENERAL: Non-toxic in appearance. INTEGUMENTARY: Warm, dry, and [place]. HEAD: Normocephalic. EYES: without scleral icterus or trauma. ENT/OROPHARYNX: clear and moist. LYMPHADENOPATHY/NECK: Is supple without lymphadenopathy or meningismus. RESPIRATORY: Lungs clear and equal. CARDIOVASCULAR: Regular rate and rhythm. GI/ABDOMEN: Soft, mild tenderness to palpation of RUQ. No organomegaly or pulsatile mass. No rebound or guarding. Normal bowel sounds. EXTREMITIES: Warm and well perfused. BACK: No CVA tenderness. NEUROLOGICAL: Intact without focal deficits. PSYCHIATRIC: normal affect. MUSCULOSKELETAL: Normally developed with good muscle tone. Medical Decision & Procedures ER Provider Diagnostic Interpretation: Radiology results as stated below per my review and radiologist interpretation: GALLBLADDER-ABD LIMITED CLINICAL HISTORY: ABDOMINAL PAIN/GI pain. Nausea. TECHNIQUE: Ultrasound COMPARISON STUDY: 2017 FINDINGS: Multiple small gallstones are again noted. No abnormal pericholecystic fluid. Common bile duct 5 mm. Mild fatty infiltration of the liver. Pancreas and right kidney are unremarkable. IMPRESSION: Multiple small gallstones. Normal caliber bile duct. Mild fatty infiltration of liver. No change from the prior study. The above report was generated using voice recognition software. It may contain grammatical, syntax or spelling errors. Electronically signed by: Mian Elaine M.D. 04/09/2017 10:51 AM Dictated Date/Time: 04/09/2017 10:50 AM Laboratory Results 04/09/17 09:56 Red Blood Count 3.45, Mean Corpuscular Volume 91.3, Mean Corpuscular Hemoglobin 30.7, Mean Corpuscular Hemoglobin Concent 33.7, Mean Platelet Volume 9.2, Neutrophils (%) (Auto) 85.2, Lymphocytes (%) (Auto) 9.3, Monocytes (%) (Auto) 3.9, Eosinophils (%) (Auto) 0.0, Basophils (%) (Auto) 0.1, Neutrophils # (Auto) 7.84, Lymphocytes # (Auto) 0.86, Monocytes # (Auto) 0.36, Eosinophils # (Auto) 0.00, Basophils # (Auto) 0.01 04/09/17 09:56 Test 04/09/17 09:56 White Blood Count 9.21 K/uL (4.8-10.8) Red Blood Count 3.45 M/uL (4.2-5.4) Hemoglobin 10.6 g/dL (12.0-16.0) Hematocrit 31.5 % (37-47) Mean Corpuscular Volume 91.3 fL (80-100) Mean Corpuscular Hemoglobin 30.7 pg (25-34) Mean Corpuscular Hemoglobin Concent 33.7 g/dl (32-36) Platelet Count 113 K/uL (130-400) Mean Platelet Volume 9.2 fL (7.4-10.4) Neutrophils (%) (Auto) 85.2 % Lymphocytes (%) (Auto) 9.3 % Monocytes (%) (Auto) 3.9 % Eosinophils (%) (Auto) 0.0 % Basophils (%) (Auto) 0.1 % Neutrophils # (Auto) 7.84 K/uL (1.4-6.5) Lymphocytes # (Auto) 0.86 K/uL (1.2-3.4) Monocytes # (Auto) 0.36 K/uL (0.11-0.59) Eosinophils # (Auto) 0.00 K/uL (0-0.5) Basophils # (Auto) 0.01 K/uL (0-0.2) RDW Standard Deviation 44.4 fL (36.4-46.3) RDW Coefficient of Variation 13.3 % (11.5-14.5) Immature Granulocyte % (Auto) 1.5 % Immature Granulocyte # (Auto) 0.14 K/uL (0.00-0.02) Anion Gap 8.0 mmol/L (3-11) Estimated GFR () > 150.0 Estimated GFR (Non- 132.6 BUN/Creatinine Ratio 16.3 (10-20) Uric Acid 4.5 mg/dl (2.6-7.2) Calcium Level 8.3 mg/dl (8.5-10.1) Total Bilirubin 0.8 mg/dl (0.2-1) Direct Bilirubin 0.4 mg/dl (0-0.2) Aspartate Amino Transf (AST/SGOT) 132 U/L (15-37) Alanine Aminotransferase (ALT/SGPT) 51 U/L (12-78) Alkaline Phosphatase 80 U/L (45-117) Total Protein 6.4 gm/dl (6.4-8.2) Albumin 2.9 gm/dl (3.4-5.0) Lipase 202 U/L (73-393) Laboratory results as stated above per my review. Medications Administered Medications (Trade) Dose Ordered Sig/Jas Route Start Time Stop Time Status Last Admin Dose Admin Sodium Chloride 1,000 ml @ 999 mls/hr Q1H1M STAT IV 04/09/17 09:32 04/09/17 10:32 DC 04/09/17 09:40 999 MLS/HR ED Course 0907: Previous medical records were reviewed. The patient was evaluated in room A12B. A complete history and physical examination was performed. 0932: Reglan 10 mg IV - pt declined; NSS 1000 ml @ 999 mls/hr IV 1115: I reassessed the patient at this time. She is resting more comfortably. I discussed the results and treatment plan with the patient and her . I answered all pertaining questions that they had. They expressed understanding and verbalized agreement. The patient will be discharged home. 1121: Rocephin 1 gm IV 1130: GI cocktail 24 ml PO Medical Decision Differential considered: pancreatitis, hepatitis, or acute cholecystitis, AAA, UTI, pyelonephritis, kidney stones, appendicitis, diverticulitis, shingles, bowel obstruction mesenteric ischemia, intussusception, hernia, ovarian torsion , ruptured ovarian cyst, ectopic , . This is a 18-year-old female who presents to the ED with a chief complaint of epigastric abdominal pain the patient was initially evaluated at the obstetric floor because she is about 5 months . The patient had epigastric abdominal pain that radiated into her back. Her vital signs are stable. Physical exam reveals some mild discomfort in the epigastric area with palpation. The patient does have history of gallstones. She has been here previously for the same. The reported that her symptoms resolve previously with a GI cocktail. The white blood cell count was 9, hemoglobin 11.6. Complete metabolic panel was unremarkable. AST was 132. Lipase is negative. Bilirubin was normal. Ultrasound reveals multiple small gallstones similar to previous study. The patient's urinalysis that was done upstairs revealed a urinary tract infection. The patient was treated with IV fluids and IV Reglan. She was given a GI cocktail by mouth. The patient was given IV Rocephin for UTI. She was told the results. She was discharged on Keflex. Medication Reconcilliation Current Medication List: was personally reviewed by me Blood Pressure Screening Patient's blood pressure: Low blood pressure Impression Primary Impression: Epigastric abdominal pain Additional Impressions: UTI (urinary tract infection) Gallstones Scribe Attestation The scribe's documentation has been prepared under my direction and personally reviewed by me in its entirety. I confirm that the note above accurately reflects all work, treatment, procedures, and medical decision making performed by me. Departure Information Dispostion Home / Self-Care Prescriptions Cephalexin Monohydrate (Keflex) 500 Mg Cap 500 MG PO QID, #28 CAP Prov: Dhruv Garrett D.O. 04/09/17 Referrals Terrence Steven M.D. (PCP) Patient Instructions My [facility] Additional Instructions Keflex as prescribed for urine infection. Use Maalox as needed for upset stomach. Follow-up with your doctor for further care and evaluation in 1-2 days. Return to the emergency department for worsening or new symptoms or any concerns. You have been examined and treated today on an emergency basis only. This is not a substitute for, or an effort to provide, complete comprehensive medical care. It is impossible to recognize and treat all injuries or illnesses in a single emergency department visit. It is therefore important that you follow up closely with your doctor. Call as soon as possible for an appointment. Problem Qualifiers
[2017-04-09] MEDS ORDERED: ALUMINUM/MAGNESIUM SUSP 30 ML UDC ONE (12:12)
[2017-04-09] MEDS ORDERED: LIDOCAINE HCL 2% VISC SOLN 20 ML UDC ONE (12:12)
[2017-04-09 12:22] VITALS: BP 93/58; PULSE 84; O2SAT 100
== END 2017-04-09 12:53 | disposition home or self-care (01) ==
LOC: EDBD 08:55 → C.EDA 08:55
DX: R10.13 Epigastric pain (principal); O23.42 Unspecified infection of urinary tract in pregnancy, second trimester; O99.612 Diseases of the digestive system complicating pregnancy, second trimester; K80.20 Calculus of gallbladder without cholecystitis without obstruction

== ENCOUNTER → 2017-04-10 | Outpatient (CLI) | payer OTHER ==
[~2017-04-10] MED LIST changes: +CEPH500C PO; +CRFL PO; +PREN1TAB PO
[2017-04-10 12:14] LABS: HEMATOCRIT 31.2 % (37-47); HEMOGLOBIN 10.2 g/dL (12.0-16.0)
== END | disposition home or self-care (01) ==
LOC: C.LAB1850 09:18
PROVIDERS: ATTEND Obstetrics & Gynecology
DX: Z34.83 Encounter for supervision of other normal pregnancy, third trimester (principal)

== ENCOUNTER 2017-04-11 19:01 | Emergency (ER) | payer OTHER ==
[~2017-04-11] VITALS: Ht 154.9 cm; Wt 64.3 kg
[~2017-04-11 19:01] MED LIST changes: -CRFL PO; -PRENTAB26 PO
[2017-04-11 19:02] VITALS: TEMP 36.5; Ht 154.9 cm; Wt 64.3 kg
[2017-04-11] MEDS ORDERED: SODIUM CHLORIDE 0.9% 1000ML 1,000 ML IV STA (19:25)
[2017-04-11] MEDS ORDERED: ONDANSETRON INJ 2 MG/ML 2 ML VIAL IV STA (19:25)
[2017-04-11] MEDS ORDERED: ACETAMINOPHEN IV 100 ML IV STA (19:25)
[2017-04-11 19:43] LABS: ALBUMIN 3.4 gm/dl (3.4-5.0); ALT/SGPT 48 U/L (12-78); AST/SGOT 87 U/L (15-37); BLOOD UREA NITROGEN 9 mg/dl (7-18); CALCIUM 9.3 mg/dl (8.5-10.1); CARBON DIOXIDE 26 mmol/L (21-32); CREATININE 0.49 mg/dl (0.60-1.20); GLUCOSE 88 mg/dl (70-99); LIPASE 241 U/L (73-393); POTASSIUM 3.5 mmol/L (3.5-5.1); SODIUM 136 mmol/L (136-145)
[2017-04-11 19:44] LABS: BASO % 0.1 %; BASO ABS # 0.01 K/uL (0-0.2); EOS % 0.3 %; EOS ABS # 0.03 K/uL (0-0.5); HEMATOCRIT 33.6 % (37-47); HEMOGLOBIN 11.5 g/dL (12.0-16.0); IG# 0.12 K/uL (0.00-0.02); LYMPH % 13.3 %; MEAN CELL VOLUME 91.1 fL (80-100); MEAN CORPUSCULAR HEMOGLOBIN 31.2 pg (25-34); MEAN CORPUSCULAR HGB CONC 34.2 g/dl (32-36); MONO % 6.7 %; MONO ABS # 0.76 K/uL (0.11-0.59); NEUT % 78.5 %; NEUT ABS # 8.88 K/uL (1.4-6.5); PLATELET COUNT 135 K/uL (130-400); RED CELL DISTRIBUTION WIDTH CV 13.2 % (11.5-14.5); RED CELL DISTRIBUTION WIDTH SD 43.8 fL (36.4-46.3)
[2017-04-11 19:46] LABS: ALKALINE PHOSPHATASE 95 U/L (45-117); TOTAL PROTEIN 7.4 gm/dl (6.4-8.2)
--- NOTE | 2017-04-11 20:13 | EMERGENCY ROOM VISIT NOTE ---
ED Visit Note First contact with patient: 19:09 CHIEF COMPLAINT: Upper abdominal pain HISTORY OF PRESENTING ILLNESS: This is a 26-year-old female who presents to the emergency department with complaint of right upper quadrant/epigastric abdominal pain. 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 She was seen in the emergency department 2 days ago for similar pain, was found to have gallstones on ultrasound. The patient states that she was feeling better, but her pain suddenly became worse today about 3 PM, she also had severe nausea and vomited twice. She denies any fevers or chills. She is 7 months , stating she is due the end of June. She saw her OB provider yesterday, patient states they did nothing additional for her symptoms. She has tried Maalox for her symptoms, which she states is not helping. She has not taken any Tylenol for her pain. She denies any symptoms of headache, neck pain, chest pain, shortness of breath, dizziness or syncope, diarrhea or constipation, blood in the stool, urinary symptoms, or rash. She does note that she was diagnosed with a UTI 2 days ago and has been taking Keflex for this. REVIEW OF SYSTEMS: A complete 10 point review of systems was reviewed with the patient with pertinent positives and negatives as per history of present illness. All else were negative. PAST MEDICAL HISTORY: Reviewed in chart. SOCIAL HISTORY: Lives at home with her and child. Denies tobacco, alcohol, recreational drug use. ALLERGIES: No known allergies. PHYSICAL EXAM: CONSTITUTIONAL: Pleasant and cooperative. No acute distress, but appears uncomfortable and in pain, moaning and rolling around in the stretcher during exam. Mildly dehydrated, but otherwise well appearing and well nourished. HEENT: Normocephalic, atraumatic. Pupils equal, round and reactive to light, EOMI. TMs normal. Pharynx normal. Tacky mucous membranes. NECK: Supple, full active range of motion without discomfort. RESPIRATORY: Clear to auscultation bilaterally with no wheezing, crackles, rhonchi or stridor. Equal expansion bilaterally. CARDIOVASCULAR: Regular rate and rhythm with no murmurs, rubs or gallops. Normal peripheral perfusion. No edema. GASTROINTESTINAL: Soft, gravid abdomen. Tenderness to palpation in the epigastric region only, abdomen is otherwise nontender. No rebound tenderness or guarding. No palpable masses or HSM. Bowel sounds present in all quadrants. MUSCULOSKELETAL: Full range of motion of all joints without discomfort. INTEGUMENTARY: No rash or other significant dermatologic conditions noted. NEUROLOGIC: Alert and oriented X 4 with normal affect. Normal strength and sensation in all 4 extremities. No focal neurologic deficits noted. Normal speech. Normal gait observed. ED COURSE AND MEDICAL DECISION MAKING: CC: Patient presenting with complaint of epigastric pain, nausea and vomiting DIFFERENTIAL DIAGNOSIS: Includes, but not limited to gastroenteritis, gastritis , peptic ulcer disease, GERD, cholecystitis, cholelithiasis, choledocholithiasis /pancreatitis, related symptoms, dehydration, among others. INTERPRETATION OF LABS: Mild leukocytosis, mild anemia (consistent with baseline ), no significant electrolyte abnormality, normal renal function, normal liver enzymes and lipase. IMAGING: GALLBLADDER-ABD LIMITED HISTORY: 26 years-old Female eval GB stone obstruction, cholecystitis acute right upper quadrant abdominal pain in a patient with history of cholelithiasis COMPARISON: Right upper quadrant ultrasound 04/09/2017 TECHNIQUE: Multiple real-time sonographic images of the abdominal right upper quadrant were obtained assessing grayscale appearance and color flow FINDINGS: The pancreas is partially obscured by bowel gas with the imaged portions appearing unremarkable. The liver measures up to 14.7 cm in length. Ill-defined area of linear slightly increased echogenicity is noted within the right hepatic measuring up to 1.7 cm in length which may reflect an area of fibrotic parenchyma or focal fatty infiltration. No intrahepatic biliary ductal dilation. Intrauterine fetus incidentally noted with heart rate measured at 146 bpm. Multiple gallstones are noted within the gallbladder lumen along with layering gallbladder sludge. There is no wall thickening or pericholecystic fluid collections identified. Sonographic Pro sign reported as negative. Common bile duct is minimally dilated at 8 mm. No obstructing stone or calculus identified. Right kidney measures 11.0 cm in length and demonstrates mild pelvicaliectasis. IMPRESSION: 1. Cholelithiasis and gallbladder sludge without sonographic evidence of acute cholecystitis. 2. Mild dilation of the common bile duct, 8 mm without obstructing stone or lesion identified. 3. Mild pelvicaliectasis of the right kidney likely secondary to physiologic changes with . MEDICATION RECONCILIATION: I attest that I have personally reviewed the patient 's current medication list. INITIAL VITAL SIGNS REVIEW: I reviewed the patient's initial vital signs and interpret them as follows: T: Afebrile; BP: Hypotensive; HR: Within normal limits; RR: Within normal; Pulse Ox: Within normal limits on room air. Blood pressure screening: The patient was found to have low blood pressure on screening, this appears to be her baseline upon review of her chart and does not require follow-up for repeat blood pressure check. SUMMARY: Patient was evaluated at bedside, history and physical exam performed. Patient is alert and oriented, no acute distress, but does appear uncomfortable , moaning in the stretcher. Patient does have tenderness in the epigastric region of the abdomen, she is otherwise nontender in the abdomen is soft with normal bowel sounds. Patient complains of nausea, but is not actively vomiting or dry heaving. Review of the patient's chart Was performed, noting her recent ED visit 2 days ago for similar symptoms. She was noted to have multiple small gallstones on ultrasound at that time. Orders were placed at bedside for labs, UA, IV fluids for hydration, IV Zofran for nausea, IV Pepcid and Carafate for epigastric pain, right upper quadrant ultrasound to evaluate for worsening gallbladder disease. Patient discussed with Dr. Garrett, who agrees with my assessment and plan. Labs and imaging reviewed as above, unremarkable, ultrasound appears unchanged with no convincing evidence for acute cholecystitis or biliary obstruction. Patient declined providing a urine sample. Given her recent diagnosis of UTI and current treatment on Keflex, I feel this is not necessary as part of her evaluation. Patient reassessed multiple times throughout ED stay, she does appear improved and states that her pain and nausea are feeling a little bit better after treatment. The patient and her were updated on all results and plan for discharge, I encouraged them to follow closely with the OB provider and PCP, and provided referral to a general surgeon for further evaluation of the gallbladder. Rx for Carafate was provided to the patient. I spent several minutes providing education to the patient and her regarding ongoing management of her symptoms, available [id number] treatments, and bland diet. The patient and her were also given strict return precautions should her symptoms worsen, she verbalized understanding. Patient was discharged home in stable condition and ambulatory. Current/Historical Medications Scheduled Cephalexin Monohydrate (Keflex), 500 MG PO QID Famotidine (Pepcid), 20 MG PO BID Vit W/ Ferrous Fumara (Preplus 27-1 mg), TAB PO DAILY Sucralfate (Carafate), 10 ML PO TIDM Allergies Coded Allergies: No Known Allergies (Unverified , 04/11/17) Vital Signs Date Time Temp Pulse Resp B/P (MAP) Pulse Ox O2 Delivery O2 Flow Rate FiO2 04/11/17 23:18 81 18 84/53 98 04/11/17 21:21 75 24 101/68 100 Room Air 04/11/17 20:58 78 20 85/52 100 Room Air 04/11/17 19:16 76 04/11/17 19:02 36.5 74 26 90/53 100 Room Air Laboratory Results 04/11/17 18:47 Red Blood Count 3.69, Mean Corpuscular Volume 91.1, Mean Corpuscular Hemoglobin 31.2, Mean Corpuscular Hemoglobin Concent 34.2, Mean Platelet Volume 9.0, Neutrophils (%) (Auto) 78.5, Lymphocytes (%) (Auto) 13.3, Monocytes (%) (Auto) 6.7, Eosinophils (%) (Auto) 0.3, Basophils (%) (Auto) 0.1, Neutrophils # (Auto) 8.88, Lymphocytes # (Auto) 1.50, Monocytes # (Auto) 0.76, Eosinophils # (Auto) 0.03, Basophils # (Auto) 0.01 04/11/17 18:47 Test 04/11/17 18:47 White Blood Count 11.30 K/uL (4.8-10.8) Red Blood Count 3.69 M/uL (4.2-5.4) Hemoglobin 11.5 g/dL (12.0-16.0) Hematocrit 33.6 % (37-47) Mean Corpuscular Volume 91.1 fL (80-100) Mean Corpuscular Hemoglobin 31.2 pg (25-34) Mean Corpuscular Hemoglobin Concent 34.2 g/dl (32-36) Platelet Count 135 K/uL (130-400) Mean Platelet Volume 9.0 fL (7.4-10.4) Neutrophils (%) (Auto) 78.5 % Lymphocytes (%) (Auto) 13.3 % Monocytes (%) (Auto) 6.7 % Eosinophils (%) (Auto) 0.3 % Basophils (%) (Auto) 0.1 % Neutrophils # (Auto) 8.88 K/uL (1.4-6.5) Lymphocytes # (Auto) 1.50 K/uL (1.2-3.4) Monocytes # (Auto) 0.76 K/uL (0.11-0.59) Eosinophils # (Auto) 0.03 K/uL (0-0.5) Basophils # (Auto) 0.01 K/uL (0-0.2) RDW Standard Deviation 43.8 fL (36.4-46.3) RDW Coefficient of Variation 13.2 % (11.5-14.5) Immature Granulocyte % (Auto) 1.1 % Immature Granulocyte # (Auto) 0.12 K/uL (0.00-0.02) Anion Gap 7.0 mmol/L (3-11) Est Creatinine Clear Calc Drug Dose 146.7 ml/min Estimated GFR () > 150.0 Estimated GFR (Non- 132.6 BUN/Creatinine Ratio 18.1 (10-20) Calcium Level 9.3 mg/dl (8.5-10.1) Total Bilirubin 0.6 mg/dl (0.2-1) Direct Bilirubin 0.3 mg/dl (0-0.2) Aspartate Amino Transf (AST/SGOT) 87 U/L (15-37) Alanine Aminotransferase (ALT/SGPT) 48 U/L (12-78) Alkaline Phosphatase 95 U/L (45-117) Total Protein 7.4 gm/dl (6.4-8.2) Albumin 3.4 gm/dl (3.4-5.0) Lipase 241 U/L (73-393) Medications Administered Medications (Trade) Dose Ordered Sig/Jas Route Start Time Stop Time Status Last Admin Dose Admin Ondansetron HCl (Zofran Inj) 4 mg NOW STAT IV 04/11/17 19:25 04/11/17 19:28 DC 04/11/17 19:41 4 MG Sodium Chloride 1,000 ml @ 999 mls/hr Q1H1M STAT IV 04/11/17 19:25 04/11/17 20:25 DC 04/11/17 19:41 999 MLS/HR Acetaminophen 100 ml @ 400 mls/hr NOW STAT IV 04/11/17 19:25 04/11/17 19:39 DC 04/11/17 19:42 400 MLS/HR Famotidine (Pepcid 20mg Iv Push) 20 mg NOW STAT IV 04/11/17 20:38 04/11/17 20:43 DC 04/11/17 20:53 20 MG Sucralfate (Carafate Susp) 1 gm NOW STAT PO 04/11/17 20:38 04/11/17 20:43 DC 04/11/17 20:55 1 GM Departure Information Impression Primary Impression: Epigastric abdominal pain Additional Impression: Nausea and vomiting Dispostion Home / Self-Care Condition GOOD Prescriptions Sucralfate (CARAFATE) 1 Gm/10 Ml Sultana 10 ML PO TIDM for 7 Days, #250 ML 1 Refill Prov: Mone Goldman CRNP 04/11/17 Referrals No Doctor, Assigned (PCP) Hieu Rodrigues, DO Patient Instructions ED Abdominal Pain Preg Gallstones, ED Diet Evans, ED Epigastric Pain [facility] Additional Instructions You have been treated in the Emergency Department your nausea and abdominal pain. Laboratory results and imaging studies have ruled out any emergent causes for your symptoms which would warrant admission or surgery. You have been prescribed Carafate to be used to help with your nausea and abdominal pain. This should be taken 3 times a day prior to meals. Take as prescribed. For pain control, you may take Regular strength (325mg/tab) Tylenol ( acetaminophen) 1-2 tabs every 4-6 hours as needed. This is available over the counter. Do not exceed 10 tablets in a 24 hour period. Avoid taking more than 3000 mg of Tylenol per day. This includes any other sources of acetaminophen you may take on a regular basis. Eat smaller, more frequent meals and stick with bland foods to help improve your symptoms. Drink plenty of fluids to stay well hydrated. Please continue to follow up with your OB provider and your primary care provider for continued management of her symptoms. You have been provided with referral information for a general surgeon. Call to set up an appointment to be evaluated for further management of your symptoms. Return to the emergency department for severe worsening abdominal or back pain, worsening nausea/vomiting, vomiting blood, blood in your stool or urine, fevers > 101.5, severe dizziness or passing out, or any other concerns. Problem Qualifiers Additional Impression: Nausea and vomiting Vomiting type: unspecified Vomiting Intractability: non-intractable Qualified Codes: R11.2 - Nausea with vomiting, unspecified
[2017-04-11] MEDS ORDERED: FAMOTIDINE 20MG/5ML IV PUSH IV STA (20:38)
[2017-04-11] MEDS ORDERED: SUCRALFATE 1 GM/10 ML UDC PO STA (20:38)
--- NOTE | 2017-04-11 20:58 | DIAGNOSTIC IMAGING REPORT ---
GALLBLADDER-ABD LIMITED HISTORY: 26 years-old Female eval GB stone obstruction, cholecystitis acute right upper quadrant abdominal pain in a patient with history of cholelithiasis COMPARISON: Right upper quadrant ultrasound 04/09/2017 TECHNIQUE: Multiple real-time sonographic images of the abdominal right upper quadrant were obtained assessing grayscale appearance and color flow FINDINGS: The pancreas is partially obscured by bowel gas with the imaged portions appearing unremarkable. The liver measures up to 14.7 cm in length. Ill-defined area of linear slightly increased echogenicity is noted within the right hepatic measuring up to 1.7 cm in length which may reflect an area of fibrotic parenchyma or focal fatty infiltration. No intrahepatic biliary ductal dilation. Intrauterine fetus incidentally noted with heart rate measured at 146 bpm. Multiple gallstones are noted within the gallbladder lumen along with layering gallbladder sludge. There is no wall thickening or pericholecystic fluid collections identified. Sonographic Pro sign reported as negative. Common bile duct is minimally dilated at 8 mm. No obstructing stone or calculus identified. Right kidney measures 11.0 cm in length and demonstrates mild pelvicaliectasis. IMPRESSION: 1. Cholelithiasis and gallbladder sludge without sonographic evidence of acute cholecystitis. 2. Mild dilation of the common bile duct, 8 mm without obstructing stone or lesion identified. 3. Mild pelvicaliectasis of the right kidney likely secondary to physiologic changes with . The above report was generated using voice recognition software. It may contain grammatical, syntax or spelling errors. Electronically signed by: Royal Brown M.D. 04/11/2017 8:56 PM Dictated Date/Time: 04/11/2017 8:49 PM
[2017-04-11] MEDS ORDERED: CRFL PO (22:34)
[2017-04-11 23:18] VITALS: BP 84/53; PULSE 81; O2SAT 98
== END 2017-04-11 23:18 | disposition home or self-care (01) ==
LOC: EDBD 19:01 → C.EDA 19:02
DX: O99.89 Other specified diseases and conditions complicating pregnancy, childbirth and the puerperium (principal); R10.13 Epigastric pain; R11.2 Nausea with vomiting, unspecified; Z79.899 Other long term (current) drug therapy; Z3A.00 Weeks of gestation of pregnancy not specified

== ENCOUNTER → 2017-06-12 | Outpatient (CLI) | payer OTHER ==
[~2017-06-12] MED LIST changes: +CRFL PO
== END | disposition home or self-care (01) ==
LOC: C.LABSPEC 11:17
PROVIDERS: ATTEND Obstetrics & Gynecology
DX: Z34.83 Encounter for supervision of other normal pregnancy, third trimester (principal)

== ENCOUNTER 2017-06-30 07:30 | Inpatient (IN) | payer OTHER ==
--- NOTE | 2017-06-27 10:52 | PAT Medication Instructions ---
Service Date June 27, 2017. Current Home Medication List Vit W/ Ferrous Fumara (Preplus 27-1 mg), TAB PO HS Sucralfate (Carafate), 1 GM PO TID [Tylenol], 1 TAB PO PRN Medication Instructions For Your Scheduled Surgery - Take the following medications the morning of surgery with a sip of water OTHERWISE NOTHING TO EAT OR DRINK AFTER MIDNIGHT: Sucralfate (Carafate), 1 GM PO TID [Tylenol], 1 TAB PO PRN (may take if needed up to 4 hours prior to surgery) - Take the following medications as scheduled the night before surgery: Vit W/ Ferrous Fumara (Preplus 27-1 mg), TAB PO HS Sucralfate (Carafate), 1 GM PO TID [Tylenol], 1 TAB PO PRN If you have any questions please call us at [phone] or [phone] or [phone]
[2017-06-27 11:18] LABS: BASO % 0.2 %; BASO ABS # 0.01 K/uL (0-0.2); EOS % 0.5 %; EOS ABS # 0.03 K/uL (0-0.5); HEMATOCRIT 34.3 % (37-47); HEMOGLOBIN 11.5 g/dL (12.0-16.0); IG# 0.02 K/uL (0.00-0.02); LYMPH % 28.6 %; MEAN CORPUSCULAR HEMOGLOBIN 30.8 pg (25-34); MEAN CORPUSCULAR HGB CONC 33.5 g/dl (32-36); MEAN PLATELET VOLUME 8.9 fL (7.4-10.4); MONO % 6.4 %; MONO ABS # 0.38 K/uL (0.11-0.59); NEUT ABS # 3.81 K/uL (1.4-6.5); PLATELET COUNT 129 K/uL (130-400); RED CELL DISTRIBUTION WIDTH CV 13.4 % (11.5-14.5); RED CELL DISTRIBUTION WIDTH SD 44.3 fL (36.4-46.3); WHITE BLOOD COUNT 5.95 K/uL (4.8-10.8)
--- NOTE | 2017-06-29 23:26 | HISTORY & PHYSICAL EXAMINATION ---
DATE OF ADMISSION: 06/30/2017 CHIEF COMPLAINT: Planned section. HISTORY OF PRESENT ILLNESS: A 26-year-old 2, para 1-0-0-1 at 39 weeks estimated gestational age with an EDC of 07/06/2017 who presented at 39-1/7 weeks estimated gestational age with planned section. Her indication is prior section, desires repeat section. She declines . course has been complicated by heartburn in either and language barrier. LABS: B positive, rubella immune, GBS negative. OBSTETRIC HISTORY: In 2014, she had a section in [place] at 40 weeks gestation. PAST MEDICAL HISTORY: Negative. PAST SURGICAL HISTORY: section. ALLERGIES: None. MEDICATIONS: Famotidine 20 mg every day, Carafate 1 g every day, vitamin. SOCIAL HISTORY: No tobacco, alcohol, or street drug use. FAMILY HISTORY: No congenital anomalies or mental retardation. GYNECOLOGIC HISTORY: No STDs. First Pap smear was done here and was negative. REVIEW OF SYSTEMS: 10 systems negative as per the chart. PHYSICAL EXAMINATION: GENERAL: She is a pleasant female, well developed, well nourished, in no acute distress, fair Hungarian speaking. VITAL SIGNS: Height 5 feet 2 inches, weight 137 pounds. Blood pressure 94/62. Urine negative for protein. HEART: Regular rate and rhythm. LUNGS: Clear to auscultation bilaterally. ABDOMEN: Soft, gravid, nontender. Fundal height 36 cm. Cephalic by Ricardo maneuvers. heart tone is 145. EXTREMITIES: No edema. ASSESSMENT: 1. A 39+ weeks intrauterine . 2. Prior section, desires repeat section. 3. Declines vaginal after . PLAN: The patient will be admitted on 06/30/2017 for planned repeat section per her request. She is aware of preop and postop instructions and agrees. She is aware of the risks, alternatives, and complications of the procedure including but not limited to bleeding, infection, injury to maternal and structures. She was aware that she needs to be nothing to eat or drink after midnight on Friday night before arrival on Friday for a planned repeat section. LUDIN
[~2017-06-30] VITALS: Ht 157.5 cm; Wt 62.4 kg
[2017-06-30] VITALS (8 sets, daily range): BP systolic 81–90; BP diastolic 45–54; PULSE 75–96; TEMP 36.7–37; O2SAT 96–99; Ht 157.5 cm; Wt 62.4 kg
[~2017-06-30 07:30] MED LIST changes: +CEFAZOLIN IV 2,000 MG in SYRINGE 0 ML IV SCH; -CEPH500C PO; +CITRIC ACID/SODIUM CITRATE 15 ML UDC PO SCH; -CRFL PO; +LACTATED RINGER'S 1000ML 1,000 ML IV SCH; +SUCR1TAB29 PO; +TYLENOL PO
[2017-06-30] MEDS ORDERED: OXYTOCIN INJ 10 UNITS/ML VIAL ONE (11:22)
[2017-06-30] MEDS ORDERED: PHENYLEPHRINE HCL INJ 10 MG/ML VIAL ONE (11:22)
[2017-06-30] MEDS ORDERED: MoRPHine SULFATE PF 1 MG/ML 10 ML AMP/VIAL ONE (11:23)
[2017-06-30] MEDS ORDERED: FENTANYL CITRATE INJ 50 MCG/1 ML 2 ML VIAL ONE (11:23)
--- NOTE | 2017-06-30 13:29 | History & Physical Bridge Note ---
H&P Re-Evaluation Bridge Note: I have examined the patient, reviewed the History & Physical and in the interval since the performance of the History & Physical I have noted the following changes of clinical significance: No changes noted
[2017-06-30] MEDS ORDERED: KETAMINE HCL INJ 50 MG/ML 10 ML VIAL ONE (14:12)
[2017-06-30] MEDS ORDERED: ONDANSETRON INJ 2 MG/ML 2 ML VIAL ONE (14:26)
--- NOTE | 2017-06-30 14:33 | [facility] Post Operative Brief Note ---
Immediate Operative Summary Operative Date June 30, 2017. Pre-Operative Diagnosis 1. 39+ week iup 2. Prior c/s, desires repeat 3. Declines Post-Operative Diagnosis same Procedure(s) Performed Repeat Low Transverse Section Surgeon [employer] Teacher Surgeon(s) Mike PGY 1 Estimated Blood Loss 600 Findings See Below (viable male , apgars 9,10. normal uterus tubes and ovaries bilaterally) see below Fluids (cc crystalloids) 1500 Specimens 1. cord blood Drains calabrese Anesthesia Type Spinal Complication(s) none Disposition Accompanied Pt To Recover: no Disposition: L&D
[2017-06-30] MEDS ORDERED: MoRPHine SULFATE PF 1 MG/ML 10 ML AMP/VIAL EPI PRN (14:45)
[2017-06-30] MEDS ORDERED: EpHEDrine SULFATE INJ 50 MG/ML AMP IV PRN (14:45)
[2017-06-30] MEDS ORDERED: BENZOCAINE 20% AER SPR 82.5 GM CAN EXT PRN (14:45)
[2017-06-30] MEDS ORDERED: NALBUPHINE HCL INJ 10 MG/ML AMP IV PRN (14:45)
[2017-06-30] MEDS ORDERED: MoRPHine SULFATE 2 MG/ML CARP IV PRN (14:45)
[2017-06-30] MEDS ORDERED: NALOXONE HCL INJ 0.08 MG in SYRINGE 1.8 ML IV PRN (14:45)
[2017-06-30] MEDS ORDERED: NO NARCOTICS OR SEDATIVES SCH (14:45)
[2017-06-30] MEDS ORDERED: SODIUM CHLORIDE 0.9% 1000ML 1,000 ML IV PRN (14:45)
[2017-06-30] MEDS ORDERED: SUPERCREAM 0.870 % 15GM JAR EXT PRN (14:45)
[2017-06-30] MEDS ORDERED: KETOROLAC TROMETHAMINE 30 MG/ML VIAL IV. PRN (14:45)
[2017-06-30] MEDS ORDERED: DIPHTHERIA/TETANUS/PERTUSSIS 0.5 ML SYR/VIAL IM. ONE (14:45)
[2017-06-30] MEDS ORDERED: NALOXONE HCL INJ 1 MG in SODIUM CHLORIDE 0.9% 1000ML 1,000 ML IV PRN (14:45)
[2017-06-30] MEDS ORDERED: DC INTRASPINAL MORPHINE SCH (14:45)
[2017-06-30] MEDS ORDERED: DiphenhydrAMINE HCL 50 MG/ML VIAL IV PRN (14:45)
[2017-06-30] MEDS ORDERED: HYDROCORTISONE ACETATE 25 MG SUPP PR PRN (14:45)
[2017-06-30] MEDS ORDERED: ONDANSETRON INJ 2 MG/ML 2 ML VIAL IV PRN (14:45)
[2017-06-30] MEDS ORDERED: LACTATED RINGER'S 1000ML 500 ML IV PRN (14:45)
[2017-06-30] MEDS ORDERED: LANOLIN OINT EXT PRN (14:45)
[2017-06-30] MEDS ORDERED: NALOXONE HCL 0.4 MG/1 ML VIAL/CARP IV PRN (14:45)
--- NOTE | 2017-06-30 14:47 | Anesthesiology Progress Note ---
Anesthesia Post Op Note Date & Time June 30, 2017 at 14:47 Notes Mental Status: alert / awake / arousable, participated in evaluation Pt Amnestic to Procedure: Yes Nausea / Vomiting: adequately controlled Pain: adequately controlled Airway Patency, RR, SpO2: stable & adequate BP & HR: stable & adequate Hydration State: stable & adequate Neuraxial Anesthesia: was administered, sensory block is resolving Anesthetic Complications: no major complications apparent
--- NOTE | 2017-06-30 15:31 | OPERATIVE REPORT ---
DATE OF OPERATION: 06/30/2017 PREOPERATIVE DIAGNOSES: 1. A 39+ intrauterine . 2. Prior section, desires repeat section. 3. Declines vaginal after . POSTOPERATIVE DIAGNOSES: 1. A 39+ intrauterine . 2. Prior section, desires repeat section. 3. Declines vaginal after . PROCEDURE: Repeat low transverse section. SURGEON: Izabel Woo M.D. DENTAL EQUIPMENT REPAIRER: RICARDO MckeonY1. ANESTHESIA: Spinal with Duramorph. ESTIMATED BLOOD LOSS: 600 mL INTRAVENOUS FLUIDS: 1500 mL URINE OUTPUT: 75 mL INDICATIONS: A 26-year-old 2, para 1-0-0-1 at 39+ weeks gestational age for planned section for history of prior section, desiring repeat section. The patient declines . FINDINGS: Viable male , Apgars 9 and 10. Normal uterus, tubes and ovaries bilaterally. Some adhesions of bladder to lower uterine segment. DESCRIPTION OF PROCEDURE: The patient was taken to the operating room and identified. After adequate spinal anesthesia was obtained, she was placed in the supine position with a leftward tilt and prepped and draped in the usual sterile fashion. Knife was used to create a Pfannenstiel skin incision that was carried down to the underlying layer of fascia. The fascia was nicked in the midline and this opening was extended laterally using Richardson scissors. Erik clamps were placed in the superior and inferior aspects of the fascial incision, tenting it upwards and the underlying rectus muscles were dissected off the overlying fascia both sharply and bluntly using Richardson scissors. The rectus muscles were bluntly in the midline. The peritoneal lining was elevated with two hemostats and opened up into sharply. This opening was then stretched. It was extended superiorly and inferiorly with direct visualization of the bladder. The bladder blade was placed. The vesicouterine peritoneum was elevated and opened up into. It was extended laterally and the bladder flap was created digitally. The bladder blade was replaced. The knife was then used to create a hysterotomy that was then stretched. The amniotic sac was ruptured using an Allis clamp. The center machine operator's hand was placed through the hysterotomy and the cephalic was elevated. The bladder blade was removed. With fundal pressure, the cephalic was delivered. Nuchal cord x2 was reduced. The nose and mouth had been bulb suctioned. The shoulders and body then were delivered with further fundal pressure and the cord was clamped and cut. The infant was handed off to the awaiting cheese grader. Cord blood was obtained. The placenta was now manually expressed. Uterus was exteriorized and cleared of all clots and debris. The hysterotomy was closed in a running interlocking fashion using 0 Vicryl followed by a second imbricating layer of 0 Vicryl. Hemostasis was inadequate left of the midline and at the midline. Individual pctdhk-bu-kumiy sutures of 2-0 Vicryl were placed for excellent hemostasis. The pelvis was irrigated. The uterus was returned to the abdomen. The gutters were cleared of all clots and debris. The hysterotomy was reinspected and noted to be hemostatic. The fascia was then closed in a running fashion using 0 Vicryl. The subcutaneous fat was copiously irrigated. It was reapproximated using 2-0 chromic. The skin was then closed in a subcuticular fashion using 4-0 Vicryl. All sponge, lap and needle counts were correct x2. The patient was returned to the recovery room in stable condition. I attest to the content of the Intraoperative Record and any orders documented therein. Any exceptions are noted below. DIANAD
--- NOTE | 2017-06-30 16:21 | Discharge Instructions ---
Discharge Instructions Date of Service June 30, 2017. Admission Reason for Admission: Previous Section Discharge Discharge Diagnosis / Problem: Vaginal Delivery Discharge Goals Goal(s): Routine recovery after delivery Medications Continue Dispensed Medications: supercream, dermaplast, tucks, lansinoh Activity Recommendations Activity Limitations: per Instructions/Follow-up section . Instructions / Follow-Up Instructions / Follow-Up ACTIVITY RECOMMENDATIONS: * Gradual return to full activity over the next 2-3 weeks. * No lifting - nothing heavier than baby over the next 2-3 weeks. * Do not engage in vigorous exercise, sexual activity or sports until cleared by your physician. * Do not drive or operate any motorized equipment until cleared by your physician. * You may shower/bathe daily. MEDICATIONS: For discomfort or pain, you may use Acetaminophen (Tylenol), Ibuprofen (Advil), or Naproxen (Aleve) following the package directions. For constipation you may use Colace following the package directions. BREAST CARE: If you are not breast feeding: * Wear a supportive bra 24 hours a day for one to two weeks. * Avoid stimulating your breasts and nipples as much as possible during the first few weeks after delivery. * When taking a shower, have the warm water hit your back, not breasts. * When your breasts feel full, apply ice packs. Usually three to four times a day helps ease the discomfort. * Take a mild pain medication (Tylenol / Motrin) when you are uncomfortable. If breast feeding: * Use breast milk to lubricate nipples. Lansinoh cream may be used for sore nipples. You do not need to remove cream prior to breast feeding. If using a different brand of cream, check the label for directions regarding removal of cream prior to nursing. * Wear a supportive bra. * If having problems with breasts or breast feeding, call a consultant intern or your health care provider. SPECIAL CARE INSTRUCTIONS: When you are discharged from the hospital, it is important for you to follow the instructions listed below: * During the first week at home, you should be able to care for yourself and your baby. In addition, the usual light household activities are encouraged. * Limit your activities to the way you feel. Do not try to clean the house or move furniture. Be sensible. * If you actively engage in sports and have done so up until the time of your delivery, you may resume these activities as soon as you feel able. This may take up to one month or even longer. Use good judgment. * Continue to take your vitamins for at least six weeks after the of your baby. * Your diet need not be limited unless you were on a special diet before your delivery. Breast-feeding mothers need around 2500 calories per day and at least 64-80 ounces of fluid per day (8 to 10 glasses). * You should eat foods from the four major food groups. Crash diets or fad diets are to be avoided. Eating lean meats, fresh fruits and vegetables, low-fat dairy products, high fiber foods and a regular exercise program, will help you get back to your pre- weight without putting your health at risk. * Constipation is sometimes a problem after delivery. Take a mild laxative as needed. If breast feeding, Milk of Magnesia is acceptable to use. You may use a suppository or Fleets enema. * A daily shower or tub bath is suggested. Wash incision daily with warm soapy water and pat dry. It doesn't need to be covered unless drainage is present. * A bloody vaginal discharge will usually continue until around four weeks . A small amount of bleeding may continue for as long as six weeks. Vaginal discharge changes from the bright red bleeding after delivery to pink then brownish and finally yellowish-pink before becoming white and disappearing. * Bleeding may increase with activity. Your first period may come in 4-8 weeks. If you are breast feeding, your period may be delayed even longer. * [place] (sex) can begin whenever both you and your partner feel comfortable and do not have any form of genital infection. It is recommended that you wait at least six weeks for internal and external healing to occur. If you have questions, please talk to your health care practitioner. A condom should be used to prevent infection and . * Foreplay, gentle intercourse and lubrication is very important the first several times to prevent pain. A water-based lubricant such as K-Y jelly or Astroglide may be used. * If you have RH negative blood and your baby is RH positive, you will receive RHOGAM by injection prior to discharge. The nurse will give you a card to keep with you that has the date and place that you received RHOGAM after delivery. * During your care, you had a Rubella screen done to check for the presence of rubella antibodies in your blood. If your test was negative, you will receive a Rubella vaccine prior to discharge. This vaccine may cause a fever, soreness at the injection site and flu-like symptoms. If these symptoms persist, notify your health care practitioner. is not advised for one month after a Rubella vaccine. * Verbalizes understanding of car seat law as reviewed with patient nursing. * Car Seat hand-out given and reviewed with patient by nursing. * Shaken baby information reviewed with patient by nursing. Call you doctor if: * Heavy bleeding (saturating several pads an hour) or passing clots the size of your fist. * A fever >101 degrees F (38.3 degrees C) on two occasions four hours apart and /or chills. * Unusual pain in the pelvic or vaginal areas. * Call the doctor for any increased redness, drainage or swelling around the incision and any pain unrelieved by prescribed pain medication. * "Baby Blues" lasting longer than two weeks. If you have any questions or concerns, call your health care practitioner at . FOLLOW UP VISIT: * Please call the office at to schedule a 6 week examination. It is important you keep this appointment. It is important for you to make arrangements for either yearly or twice yearly check-ups thereafter. Current Hospital Diet Patient's current hospital diet: Discharge Diet Recommended Diet: Regular Diet Procedures Procedures Performed: Repeat Low Transverse Section Pending Studies Studies pending at discharge: no Medical Emergencies . Who to Call and When: Medical Emergencies: If at any time you feel your situation is an emergency, please call [phone] immediately. . Non-Emergent Contact Non-Emergency issues call your: Primary Care Provider . . "Provider Documentation" section prepared by Bhanu Jay. .
[2017-06-30] MEDS: OXYTOCIN INJ 20 UNITS in LACTATED RINGER'S 1000ML 1,000 ML IV SCH (16:58)
[2017-06-30] MEDS: DOCUSATE SODIUM 100 MG CAP PO SCH (20:37)
[2017-06-30] MEDS: FAMOTIDINE 20 MG TAB PO SCH (20:37)
[2017-06-30] MEDS: SUCRALFATE 1 GM TAB PO SCH (20:37)
[2017-07-01] MEDS: OXYTOCIN INJ 20 UNITS in LACTATED RINGER'S 1000ML 1,000 ML IV SCH (01:09)
[2017-07-01 03:30] VITALS: BP 86/48; PULSE 70; TEMP 36.8; O2SAT 96
--- NOTE | 2017-07-01 06:13 | Progress Note ---
Subjective July 01, 2017. Subjective conversation w/ patient, physical exam Voiding: calabrese catheter in place Passing Gas: Yes Diet Tolerance: Clear Liquids Lochia: Small Feeding Type: Breast Feeding Pain: no pain issues. Comment: no lightheadedness or dizziness. Objective Vital Signs Date Time Temp Pulse Resp B/P (MAP) Pulse Ox O2 Delivery O2 Flow Rate FiO2 07/01/17 03:30 36.8 70 16 86/48 (61) 96 Room Air 06/30/17 23:00 Room Air 06/30/17 23:00 37.0 75 16 81/45 (57) 96 Room Air 06/30/17 23:00 16 96 06/30/17 22:05 16 98 06/30/17 21:05 16 98 06/30/17 20:05 18 99 06/30/17 19:05 18 99 06/30/17 19:05 36.7 92 18 90/54 (66) 99 Room Air 06/30/17 18:17 89 18 89/54 (66) 97 Room Air 06/30/17 18:15 18 97 06/30/17 17:05 99 Room Air 06/30/17 17:05 36.7 96 16 82/45 (57) 99 Room Air 06/30/17 17:05 16 99 06/30/17 17:05 99 Room Air Physical Exam General Appearance: WELL-APPEARING, WD/WN, NO APPARENT DISTRESS Respiratory/Chest: lungs clear Cardiovascular: regular rate, rhythm Abdomen: normal bowel sounds, non tender, soft Fundus: Firm, Relation to Umbilicus (2 down) Incision Description: Clean, Dry & Intact Extremities: non-tender Laboratory Results Last 24 Hours Test 07/01/17 06:00 Assessment and Plan Problem List Medical Problems: (1) Epigastric abdominal pain Status: Acute (2) Gallstone Status: Acute (3) Gallstones Status: Acute (4) Gastritis Status: Acute (5) Nausea and vomiting Status: Acute (6) UTI (urinary tract infection) Status: Acute Post-, Post-Op Day#: 1 Continue Routine Care: stable routine care. d/c calabrese this am, ambulate, adv diet. cbc pending this am. low bps overnight but given remainder of vitals and pt exam do not feel related to blood loss. pt has low bp even before the surgery. will monitor.
[2017-07-01 06:50] LABS: BASO % 0.1 %; BASO ABS # 0.01 K/uL (0-0.2); EOS % 0.2 %; EOS ABS # 0.02 K/uL (0-0.5); HEMATOCRIT 28.2 % (37-47); HEMOGLOBIN 9.6 g/dL (12.0-16.0); IG# 0.02 K/uL (0.00-0.02); LYMPH % 12.4 %; LYMPH ABS # 1.17 K/uL (1.2-3.4); MEAN CELL VOLUME 92.2 fL (80-100); MEAN CORPUSCULAR HEMOGLOBIN 31.4 pg (25-34); MONO % 6.3 %; MONO ABS # 0.59 K/uL (0.11-0.59); NEUT % 80.8 %; PLATELET COUNT 101 K/uL (130-400); RED CELL DISTRIBUTION WIDTH CV 13.4 % (11.5-14.5); RED CELL DISTRIBUTION WIDTH SD 44.4 fL (36.4-46.3); WHITE BLOOD COUNT 9.41 K/uL (4.8-10.8)
[2017-07-01 07:20] VITALS: BP 82/46; PULSE 82; TEMP 36.7; O2SAT 96
[2017-07-01] MEDS: SUCRALFATE 1 GM TAB PO SCH ×3 (07:27→16:30)
[2017-07-01] MEDS ORDERED: OXYCODONE/ACETAMINOPHEN 5-325 TAB PO PRN ×2 (07:45)
[2017-07-01] MEDS ORDERED: KETOROLAC TROMETHAMINE 30 MG/ML VIAL IV. PRN (07:45)
[2017-07-01] MEDS ORDERED: DiphenhydrAMINE HCL 50 MG/ML VIAL IV PRN (07:45)
[2017-07-01 07:50] VITALS: O2SAT 97
[2017-07-01] MEDS: PRENATAL VITAMIN TAB PO SCH (07:59)
[2017-07-01] MEDS: DOCUSATE SODIUM 100 MG CAP PO SCH ×2 (07:59→20:53)
[2017-07-01] MEDS: FAMOTIDINE 20 MG TAB PO SCH ×2 (07:59→20:53)
[2017-07-01 12:05] VITALS: BP 91/60; PULSE 96; TEMP 37; O2SAT 96
[2017-07-01 17:05] VITALS: BP 92/60; PULSE 92; TEMP 37
[2017-07-01] MEDS: IBUPROFEN 600 MG TAB PO PRN ×2 (17:20→23:30)
[2017-07-01] MEDS ORDERED: ZOLPIDEM TARTRATE 5 MG TAB PO PRN (22:00)
[2017-07-01 23:35] VITALS: BP 89/58; PULSE 86; TEMP 36.6; O2SAT 99
--- NOTE | 2017-07-02 06:49 | Progress Note ---
Subjective July 02, 2017. Subjective conversation w/ patient (difficult given language barrier) Ambulation: ambulating normally Voiding: no voiding problems Diet Tolerance: Regular Diet Lochia: Moderate Feeding Type: Breast Feeding Pain: Pt denies pain at the current time Review of Systems Constitutional: No fever difficult to conduct with language barrier Objective Vital Signs Date Time Temp Pulse Resp B/P (MAP) Pulse Ox O2 Delivery O2 Flow Rate FiO2 07/01/17 23:35 Room Air 07/01/17 23:35 36.6 86 16 89/58 (68) 99 Room Air 07/01/17 17:05 Room Air 07/01/17 17:05 37.0 92 20 92/60 (71) Room Air 07/01/17 12:05 37.0 96 18 91/60 (70) 96 Room Air 07/01/17 07:50 16 97 07/01/17 07:20 36.7 82 16 82/46 (58) 96 Room Air 07/01/17 07:20 16 96 07/01/17 07:20 96 Room Air Physical Exam General Appearance: WELL-APPEARING, WD/WN, NO APPARENT DISTRESS Abdomen: soft Fundus: Firm, Tender, Relation to Umbilicus (2 below) Incision Description: Clean, Dry & Intact Extremities: no pedal edema, no calf tenderness, + pertinent finding (TEDs in place) Laboratory Results Last 24 Hours Test 07/02/17 06:00 Assessment and Plan Problem List Medical Problems: (1) Epigastric abdominal pain Status: Acute (2) Gallstone Status: Acute (3) Gallstones Status: Acute (4) Gastritis Status: Acute (5) Nausea and vomiting Status: Acute (6) UTI (urinary tract infection) Status: Acute Post-Op Day#: 2 Continue Routine Care: 26F s/p elective repeat day 2 - B+, Rubella Immune, GBS -ve - pt doing well clinically - Vital signs reviewed - BP on the lower side but has remained stable and pt has been asymptomatic - Hemoglobin reviewed. 11.5 -> 9.6 - Encourage ambulation, monitor and control pain with Motrin PRN - Encourage breast feeding - anticipate d/c tomorrow Resident Physician Supervision Note: I was present with Dr. Jay during the history and exam. I discussed the case with the resident and agree with the findings and plan as documented in the note. Any exceptions or clarifications are listed here: POD#2 doing well. Needs to ambulate! Documented By: Jacey Putnam Resident Tracking Resident Involvement: Resident Care Provided Care Provided: OB Delivery
[2017-07-02 07:36] LABS: HEMATOCRIT 29.4 % (37-47); HEMOGLOBIN 10.1 g/dL (12.0-16.0)
[2017-07-02 07:55] VITALS: BP 87/59; PULSE 84; TEMP 36.4; O2SAT 99
[2017-07-02] MEDS: FAMOTIDINE 20 MG TAB PO SCH ×2 (09:05→19:32)
[2017-07-02] MEDS: IBUPROFEN 600 MG TAB PO PRN ×2 (09:06→22:21)
[2017-07-02] MEDS: PRENATAL VITAMIN TAB PO SCH (09:06)
[2017-07-02] MEDS: SUCRALFATE 1 GM TAB PO SCH ×3 (09:06→16:46)
[2017-07-02] MEDS: DOCUSATE SODIUM 100 MG CAP PO SCH ×2 (09:06→19:48)
[2017-07-02 15:53] VITALS: BP 99/66; PULSE 68; TEMP 36.7; O2SAT 99
[2017-07-02 16:45] VITALS: BP 89/57
[2017-07-02 18:45] VITALS: BP 89/57
[2017-07-03 00:10] VITALS: BP 99/64; PULSE 83; TEMP 36.9
--- NOTE | 2017-07-03 06:36 | Progress Note ---
Subjective July 03, 2017. Subjective conversation w/ patient, conversation w/ family ( translates for patient) Ambulation: ambulating normally Voiding: no voiding problems Passing Gas: Yes Diet Tolerance: Regular Diet Lochia: Moderate Feeding Type: Breast Feeding Pain: 2/10 pain with ambulating Review of Systems Constitutional: No fever, No chills Respiratory: No shortness of breath Abdomen: No nausea, No vomiting Objective Vital Signs Date Time Temp Pulse Resp B/P (MAP) Pulse Ox O2 Delivery O2 Flow Rate FiO2 07/03/17 00:10 Room Air 07/03/17 00:10 36.9 83 18 99/64 (76) Room Air 07/02/17 18:45 89/57 (68) 07/02/17 15:53 36.7 68 16 99/66 (77) 99 Room Air 07/02/17 15:53 99 Room Air 07/02/17 07:55 36.4 84 18 87/59 (68) 99 Room Air 07/02/17 07:55 Room Air Physical Exam General Appearance: WELL-APPEARING, WD/WN, NO APPARENT DISTRESS Abdomen: soft Fundus: Firm, Non-Tender, Relation to Umbilicus (1 below) Incision Description: Clean, Dry & Intact Extremities: no pedal edema, no calf tenderness, + pertinent finding (TEDs in place) Laboratory Results Last 24 Hours Test 07/02/17 07:07 Hemoglobin 10.1 g/dL Hematocrit 29.4 % Assessment and Plan Problem List Medical Problems: (1) Epigastric abdominal pain Status: Acute (2) Gallstone Status: Acute (3) Gallstones Status: Acute (4) Gastritis Status: Acute (5) Nausea and vomiting Status: Acute (6) UTI (urinary tract infection) Status: Acute Post-Op Day#: 3 Continue Routine Care: 26F s/p elective repeat day 3 - B+, Rubella Immune, GBS -ve - pt doing well clinically - Vital signs reviewed - BP on the lower side but seems to be patient's baseline and pt has been asymptomatic - Hemoglobin reviewed. 11.5 -> 10.1 - Encourage ambulation, monitor and control pain with Motrin PRN - pt ready for d/c today & will be counselled on d/c instructions Resident Physician Supervision Note: I interviewed and examined the patient. Discussed with Dr. Tarmohamed and agree with findings and plan as documented in the note. Any exceptions or clarifications are listed here: Doing well. Plan d/c, instructions given. Documented By: Aure Simeon Resident Tracking Resident Involvement: Resident Care Provided Care Provided: OB Delivery
[2017-07-03] MEDS ORDERED: OXYC-57 PO (07:01)
[2017-07-03] MEDS: SUCRALFATE 1 GM TAB PO SCH ×2 (07:57→11:57)
[2017-07-03] MEDS: PRENATAL VITAMIN TAB PO SCH (07:57)
[2017-07-03] MEDS: FAMOTIDINE 20 MG TAB PO SCH (07:57)
[2017-07-03] MEDS: DOCUSATE SODIUM 100 MG CAP PO SCH (07:57)
[2017-07-03] MEDS: IBUPROFEN 600 MG TAB PO PRN ×2 (07:58→13:22)
[2017-07-03 08:00] VITALS: BP 89/61; PULSE 67; TEMP 36.8; O2SAT 98
[2017-07-03 13:55] VITALS: BP_DIAS 61; PULSE 67; TEMP 36.8
== END 2017-07-03 13:55 | disposition home or self-care (01) | DRG 766 ==
LOC: EDSTATUS 07:30 → C.LD 09:09 → C.OBG 17:51
PROVIDERS: ADMIT Obstetrics & Gynecology; ATTEND Obstetrics & Gynecology
PROC: 10D00Z1 Extraction of Products of Conception, Low, Open Approach (ICD-10-PCS; principal; 2017-06-30 11:30)
DX: O69.81X0 Labor and delivery complicated by cord around neck, without compression, not applicable or unspecified (principal); R12 Heartburn; Z3A.39 39 weeks gestation of pregnancy; Z37.0 Single live birth

== ENCOUNTER 2021-06-04 05:35 | Inpatient (IN) ==
--- NOTE | 2021-05-30 15:23 | Anesthesiology Consultation ---
Date of Service May 30, 2021 Assessment & Plan (1) Encounter for pre-operative examination: Chart Review Chart Review: entry level account executive initiated -Pt's primary language is Mandarin Marshallese (did inform OB Dept- electrical project manager needed DOS). Pt's will be present DOS (speaks Anguillan) -BSG day of procedure up to anesthesiologist discretion (Pt with gestational diabetes) Per nursing assessment 05/30/2021, patient denies any recent travel. No known COVID infection in the past 90 days. Patient is fully vaccinated for COVID. No known Covid positive exposures or Covid related symptoms. Preop Covid testing sc heduled 05/31/21= will await results D&C/hysteroscopy 01/20/19= Done under [facility] with LMA #4. Attempt x 1 atraumatic History Surgery Operation Date: 06/04/21 07:30 Proposed Procedures p Section (Delivery of Baby Through Abdominal Incision) - Izabel Woo MD, FACOG s With Bilateral Tubal Ligation - Izabel Woo MD, FACOG Height/Weight Height: 5 ft 1.42 in Weight: 71.214 kg Allergies Allergy/AdvReac Type Severity Reaction Status Date / Time lactose Allergy Mild Gastrointestinal Verified 05/30/21 12:43 Upset No Known Drug Allergies Allergy NKDA Verified 05/30/21 12:43 Medications Home Medications Medication Instructions Recorded Confirmed Last Taken doxylamine succinate 25 mg tablet 25 mg PO Q6H PRN 01/09/21 05/30/21 Unknown (Unisom (doxylamine)) pyridoxine (vitamin B6) 25 mg 25 mg PO BID 01/09/21 05/30/21 Unknown tablet (Vitamin B-6) acetone (urine) test (Ketone Urine #50 ea 04/05/21 05/29/21 Unknown Test) blood sugar diagnostic (OneTouch #150 ea 04/05/21 05/29/21 Unknown Verio test strips) blood-glucose meter (OneTouch #1 ea 04/05/21 05/29/21 Unknown Verio Flex meter) lancets 33 gauge (OneTouch Delica #150 ea 04/05/21 05/29/21 Unknown Plus Lancet) prenat.vits,alcira,[id number] 1 tab PO DAILY 04/26/21 05/30/21 Unknown breast pump #1 ea 05/22/21 05/29/21 Unknown Past Medical History Medical History Gestational diabetes Checks 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 History of hypotension Non-Anguillan speaking patient Speaks very little Anguillan, will be with her and he can speak Anguillan Pt's primary language is Mandarin Marshallese Past Family History Family History Other No family history of adverse response to anesthesia Past Surgical History Surgical History History of appendectomy History of cholecystectomy S/P section x2 Social History Smoking Status: Never smoker Do You Dip or Chew Tobacco: No Hx Alcohol Use: No Alcohol type: beer alcohol intake frequency: holidays/special occasions only Hx Substance Use: No substance use type: does not use Testing Laboratory Results 04/26/21= GLUCOSE: 95 Electrocardiogram Date: 06/21/20 Findings: + NSR @ (91bpm ) Possible left atrial enlargement Nonspecific T wave abnormality When compared to EKG from August 12, 2017- ventricular rate has increased by 46bpm Chest X-Ray Date: 06/21/20 Findings: + NAD Single view CXR
--- NOTE | 2021-06-01 19:03 | History & Physical Report ---
Date of Service June 01, 2021 Assessment & Plan (1) Previous delivery affecting , antepartum: (2) Gestational diabetes mellitus (GDM) affecting : (3) Encounter for sterilization: Plan: Plan admit on sunday 06/04 for planned repeat cs and tubal. Entire visit with greenhouse grower today. Patient given ample opportunity to ask questions and all answered to her apparent satisfaction. Consent reviewed and signed. Discussed ri sks, alternatives and complications to include but not limited to bleeding, infection, anesthesia, injury to maternal or structures, delayed complications, additional procedures or hospitalizations needed, deep venous thrombosis or pulmonary embolism. Risks specific to tubal sterilization like regret, failure, ectopic . Preop, postop instructions and course reviewed. Plan ancef 2gm iv octor. History of Present Illness Chief Complaint: planned c/s Primary Care Provider: JOÃO PCP 30yo at 39wks on day of her admission for planned repeat c/s and desires sterilization. She denies rom, vb. +FM. Some contractions but not regular. PNC c/b 1. Prior c/s x 2 2. GDM diet controlled. PNL rh pos, ri, gbs neg OBH: prior c/s x2 GYNH: nl paps, no stds Allergies Allergy/AdvReac Type Severity Reaction Status Date / Time lactose Allergy Mild Gastrointestinal Verified 06/01/21 09:05 Upset No Known Drug Allergies Allergy NKDA Verified 06/01/21 09:05 Home Medications Medication Instructions Recorded Confirmed Type doxylamine succinate 25 mg tablet 25 mg PO Q6H PRN 01/09/21 06/01/21 History (Unisom (doxylamine)) pyridoxine (vitamin B6) 25 mg 25 mg PO BID 01/09/21 06/01/21 History tablet (Vitamin B-6) acetone (urine) test (Ketone Urine #50 ea 04/05/21 06/01/21 Rx Test) blood sugar diagnostic (OneTouch #150 ea 04/05/21 06/01/21 Rx Verio test strips) blood-glucose meter (OneTouch #1 ea 04/05/21 06/01/21 Rx Verio Flex meter) lancets 33 gauge (OneTouch Delica #150 ea 04/05/21 06/01/21 Rx Plus Lancet) prenat.vits,alcira,vrp-hwpm-caqjv 1 tab PO DAILY 04/26/21 06/01/21 History breast pump #1 ea 05/22/21 06/01/21 Rx Patient History Medical History Gestational diabetes Checks BSG occasionally 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 History of hypotension Non-Russian speaking patient Speaks very little Russian, will be with her and he can speak Russian Pt's primary language is [employer] Solutionsarin [place] Surgical History History of appendectomy History of cholecystectomy S/P section x2 Family History Other No family history of adverse response to anesthesia Social History (Updated 01/09/21 @ 10:00 by Melissa Mitchell) Smoking Status: Never smoker Second Hand Exposure: No; Hx Alcohol Use: No Hx Substance Use: No Preferred Language: [employer] [place] Communication Ability: Impaired Guideman Required: Yes Beliefs That Will Affect Care: None marital status: marital status details: Sammy (36) [phone] Current Living Situation: Family Current Living Situation Comment: lives with spouse and children. 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 Feels Safe at Home: Yes Assistive Devices: Glasses Review of Systems as per Subjective / HPI Physical Exam Constitutional: WD/WN, vitals as above Respiratory: normal respiratory effort, lungs clear to auscultation Cardiovascular: Rate/Rhythm: regular rate and regular rhythm Gastrointestinal (Abdomen): soft gravid nt Musculoskeletal: no edema nontender calves Neurologic: grossly normal Psychiatric: A+Ox3, euthymic affect Coding Level of Care Code None Diagnoses Previous delivery affecting , antepartum O34.219 Gestational diabetes mellitus (GDM) affecting O24.419 Encounter for sterilization Z30.2
[2021-06-04] MEDS ORDERED: LACTATED RINGER'S 1,000 ML IV SCH ×2 (05:45→11:06)
[2021-06-04] MEDS ORDERED: CITRIC ACID/SODIUM CITRATE 15 ML UDC PO SCH (06:00)
[2021-06-04] MEDS ORDERED: ceFAZolin 2000MG 2,000 MG/15 ML SYR IV SCH (06:00)
[2021-06-04] MEDS ORDERED: ONDANSETRON INJ 2 MG/ML 2 ML VIAL ONE (06:49)
[2021-06-04] MEDS ORDERED: MoRPHine SULFATE PF 1 MG/ML 10 ML AMP/VIAL ONE (06:49)
[2021-06-04] MEDS ORDERED: fentaNYL citrate 100 MCG/2 ML VIAL ONE (06:49)
[2021-06-04] MEDS ORDERED: KETOROLAC 30 MG/ML VIAL ONE (06:50)
[2021-06-04 06:58] LABS: Basophils # (auto) 0.01 K/uL (0-0.2); Basophils % (auto) 0.2 %; Eosinophils # (auto) 0.05 K/uL (0-0.5); Eosinophils % (auto) 0.9 %; Hematocrit (blood only) 33.3 % (37-47); Hemoglobin 10.7 g/dL (12.0-16.0); Immature Granulocytes # (auto) 0.04 K/uL (0.00-0.02); Immature Granulocytes % (auto) 0.7 %; Lymphocytes # (auto) 1.55 K/uL (1.2-3.4); Lymphocytes % (auto) 26.4 %; Mean Corpuscular Hemoglobin 30.7 pg (25-34); Mean Corpuscular Volume 95.4 fL (80-100); Mean Platelet Volume 9.3 fL (7.4-10.4); Monocytes # (auto) 0.41 K/uL (0.11-0.59); Neutrophils # (auto) 3.82 K/uL (1.4-6.5); Neutrophils % (auto) 64.8 %; Platelet Count 147 K/uL (130-400); RDW Coefficient of Variation 13.9 % (11.5-14.5); RDW Standard Deviation 47.8 fL (36.4-46.3); Red Blood Count 3.49 M/uL (4.2-5.4); White Blood Count 5.88 K/uL (4.8-10.8)
[2021-06-04 07:00] LABS: Mean Corpuscular Hgb Conc 32.1 g/dL (32-36)
--- NOTE | 2021-06-04 07:22 | History & Physical Bridge Note ---
Date of Service June 04, 2021 History & Physical Bridge Note I have examined the patient, reviewed the History & Physical and in the interval since the performance of the History & Physical I have noted the following changes of clinical significance: no changes noted
[2021-06-04] MEDS ORDERED: ACETAMINOPHEN 325 MG TAB PO PRN (08:18)
[2021-06-04] MEDS ORDERED: NALOXONE HCL 1 MG in SODIUM CHLORIDE 0.9% 1000ML 1,000 ML IV PRN (08:18)
[2021-06-04] MEDS ORDERED: NALBUPHINE HCL INJ 10 MG/ML AMP IV PRN (08:18)
[2021-06-04] MEDS ORDERED: ONDANSETRON INJ 2 MG/ML 2 ML VIAL IV PRN (08:18)
[2021-06-04] MEDS ORDERED: HYDROmorphone INJ 0.5 MG/0.5 ML SYR IV PRN (08:18)
[2021-06-04] MEDS ORDERED: MoRPHine SULFATE PF 1 MG/ML 10 ML AMP/VIAL INT SPINAL ONE (08:18)
[2021-06-04] MEDS ORDERED: ePHEDrine sulfate 50 MG/ML AMP IV PRN (08:18)
[2021-06-04] MEDS ORDERED: LACTATED RINGER'S 500 ML IV PRN (08:18)
[2021-06-04] MEDS ORDERED: PROMETHAZINE HCL 25 MG in SODIUM CHLORIDE 0.9% 50 ML IV PRN (08:18)
[2021-06-04] MEDS ORDERED: diphenhydrAMINE 50 MG/ML VIAL IV PRN (08:18)
[2021-06-04] MEDS ORDERED: NALOXONE HCL 0.08 MG in SYRINGE 1.8 ML IV PRN (08:18)
[2021-06-04] MEDS ORDERED: NALOXONE HCL 0.4 MG/1 ML VIAL/CARP IV PRN (08:18)
[2021-06-04] MEDS ORDERED: SODIUM CHLORIDE 0.9% 1000ML 1,000 ML IV SCH (08:30)
[2021-06-04] MEDS ORDERED: NO NARCOTICS OR SEDATIVES SCH (08:30)
[2021-06-04] MEDS ORDERED: DC INTRASPINAL MORPHINE SCH (08:30)
[2021-06-04] MEDS ORDERED: KETAMINE 50 MG/5 ML SYRINGE ONE (08:40)
--- NOTE | 2021-06-04 09:10 | Post Operative Brief Note ---
PG Immediate Post Op with CF Date of Surgery June 04, 2021 Pre & Post Diagnosis Operation Date: 06/04/21 07:30 Pre-Op Diagnosis: 1) Previous delivery affecting , antepartum: (2) Gestational diabetes mellitus (GDM) affecting : (3) Encounter for sterilization I identified the patient and participated in the time-out.: Yes Procedure Operation Date: 06/04/21 07:30 Actual Procedures 1. Repeat Low Transverse Section 2. Lysis of adhesions 3. Modified Carlyn Bilateral Tubal Ligation Surgeon Izabel Woo MD, FACOG Data Solutions Architect [place] Estimated Blood Loss 800 Findings Consistent with Post-Op Diagnosis (viable female Apgars 8,9, uterine myometrium and omentum adhesed to anterior abdominal wall. normal tubes and ovaries bilaterally) Fluids 1800cc Specimens Specimen Description: A: Placenta B: Cord Blood C: Portion of left and right fallopian tubes Drains Wang Catheter (Latex free catheter place in OR, pt tolerated well. Wang patient and draining clear yellow urine.) Anesthesia Type Spinal Complications none Disposition Accompanied Patient To Recovery: No Disposition: L&D
--- NOTE | 2021-06-04 09:11 | Operative Report ---
PG Post Operative Report Pre & Post Diagnosis Operation Date: 06/04/21 07:30 Pre-Op Diagnosis: 1) 39wks iup 2) Prior section, desires repeat section 3) Desires sterilization Post-Op Diagnosis: 1) same 2) Dense adhesions I identified the patient and participated in the time-out.: Yes Procedure Operation Date: 06/04/21 07:30 Actual Procedures 1) Repeat Low Transverse Section 2) Lysis of adhesions 3) Modified jamel bilateral tubal ligation Surgeon Izabel Woo MD, FACOG Senior Reliability Engineer [place] Estimated Blood Loss 800 Findings Consistent with Post-Op Diagnosis (viable female Apgars 8,9, uterine myometrium mid ant body and omentum adhesed to anterior abdominal wall. normal tubes and ovaries bilaterally) Fluids 1800cc Specimens cord blood placenta hold Drains calabrese Anesthesia Type Spinal Complications none Disposition Accompanied Patient To Recovery: No Disposition: L&D Indications 30yo at 39 wks ega for planned repeat c/s with history of c/s x 2 and desires sterilization. otherwise complicated by gdm, diet controlled. No labor s/sx. Ready to proceed with c/s and bilateral tubal ligation. Description of Procedure The patient was taken to the operating room and identified. After adequate anesthesia was obtained, she was placed in the supine position with a leftward tilt on the operating table and prepped and draped in the usual sterile fashion. A calabrese catheter had already been placed. The knife was used to create a Pfannensteil skin incision that was carried down to the underlying layer of fascia. The fascia was nicked in the midline and this opening was extended laterally using Richardson scissors. Erik clamps were placed on the superior and inferior aspect of the fascial incision tenting it upward and the underlying rectus muscles were dissected off the overlying fascia both sharply and bluntly using Richardson scissors. Dense adhesions were encountered once the peritoneal cavity was entered into sharply during this dissection. The rectus muscles were sharply and bluntly in the midline. There were dense adhesions of the FACUNDO myometrium to the anterior abdominal wall that were taken down gradually using bovie cautery and blunt dissection. This exposed the FACUNDO for the planned h ysterotomy site. The bladder blade was placed and the bladder was far from the planned hysterotomy site. The vesicouterine peritoneum was elevated and opened up into and the bladder flap was created digitally and bladder blade was replaced. The knife was used to create a hysterotomy and this opening was stretched. The operators hand was placed through the hysterotomy and the bladder blade was removed. The head was elevated and flexed and with fundal pressure the head was delivered. The shoulders and body were rapidly delivered. The cord was clamped and cut and the infant's mouth and nares were bulb suction. The was handed off to the awaiting pediatricians. Cord blood was obtained. The placenta was manually expressed. The uterus was exteriorized and cleared of all clots and debris. Dilute IV Pitocin was begun. The uterine tone was not improving at first and so IM methergine was given into the uterine muscle. The tone was improving. The hysterotomy was closed in a running interlocking fashion using 0 Vicryl followed by a interrupted figure of eight sutures of 0 Vicryl to achieve hemostasis. The area of dissection well above the hysterotomy where the dense adhesions were taken down was rather oozy. Cautery and then several interrupted figure of eight sutures of 0-vicryl and 2-0 vicryl were placed. This improved hemostasis. The hysterotomy was also he mostatic. Attention was turned to the left fallopian tube that was followed out to its fimbriated end. The tube was elevated using a jess clamp and a knuckle of tube was doubly ligated with 2-0 plain suture and transected. The specimen was sent. The stumps were cauterized with the bovie. The right fallopian tube was identified to its fimbriated end, elevated, double ligated and transected in a similar fashion. The specimen was sent and the stump of tube was cauterized with the bovie. The pelvis was suctioned. The uterus was returned to the abdomen. The gutters were cleared of all clots and debris and the tubal sites were intact and hemostatic. The hysterotomy and myometrium operative sites were reinspected and noted to be hemostatic however 3gm of santosh placed along the suture lines. The fascia was then closed in running fashion using 0 Vicryl. The subcutaneous fat was copiously irrigated and reapproximated using 2-0 chromic. The skin was closed in a subcuticular fashion using 4-0 Vicryl. At this point the procedure was terminated. The patient was transferred to the recovery room in stable condition. All sponge, lap and needle counts are correct x2. I attest to the content of the Intraoperative Record and any orders documented therein. Any exceptions are noted below. OB Procedure Charges 70289
[2021-06-04] MEDS: KETOROLAC 30 MG/ML VIAL IV PRN (09:20)
--- NOTE | 2021-06-04 09:40 | Anesthesiology Progress Note ---
Date of Service June 04, 2021 Anesthesia Post Procedure Vital Signs Vital Signs: Temp Pulse Resp BP Pulse Ox 06/04/21 09:38 69 100 06/04/21 09:34 68 96/65 L 06/04/21 09:33 70 100 06/04/21 09:28 73 99 06/04/21 09:24 67 97/62 L 06/04/21 09:23 69 100 06/04/21 09:18 74 99 06/04/21 09:14 73 96/57 L 06/04/21 09:13 74 99 06/04/21 07:01 83 96/55 L 06/04/21 05:46 97.9 F 85 16 100/59 L 06/04/21 05:45 85 100/59 L Transfer of Care Handoff Completed per policy Notes Mental Status: alert / awake / arousable and participated in evaluation Patient Amnestic to Procedure: No Nausea / Vomiting: adequately controlled Pain: adequately controlled Airway Patency, RR, SpO2: stable & adequate BP & HR: stable & adequate Hydration State: stable & adequate Neuraxial Anesthesia: was administered and sensory block is resolving Anesthetic Complications: no major complications apparent and Pt Satisfied with anesthetic care
[2021-06-04] MEDS ORDERED: METHYLERGONOVINE MALEATE 0.2 MG/ML AMP IM STA (09:59)
[2021-06-04] MEDS ORDERED: DIPHTHERIA/TETANUS/PERTUSSIS 0.5 ML SYR/VIAL IM ONE (11:06)
[2021-06-04] MEDS ORDERED: HYDROCORTISONE ACETATE 25 MG SUPP PR PRN (11:06)
[2021-06-04] MEDS ORDERED: BENZOCAINE 20% AER SPR 82.5 GM CAN EXT PRN (11:06)
[2021-06-04] MEDS ORDERED: SENNA 8.6 MG TAB PO PRN (11:06)
[2021-06-04] MEDS: OXYTOCIN 20 UNITS in LACTATED RINGER'S 1,000 ML IV SCH ×2 (11:31→19:41)
[2021-06-04] MEDS: SIMETHICONE 80 MG CHEW PO SCH ×2 (13:49→20:48)
[2021-06-04] MEDS: DOCUSATE SODIUM 100 MG CAP PO SCH (20:47)
[2021-06-05] MEDS: KETOROLAC 30 MG/ML VIAL IV PRN (01:37)
[2021-06-05] MEDS ORDERED: diphenhydrAMINE Capsule 25 MG CAP PO PRN (02:19)
[2021-06-05] MEDS ORDERED: PROMETHAZINE HCL 25 MG in SODIUM CHLORIDE 0.9% 50 ML IV PRN (02:19)
[2021-06-05] MEDS ORDERED: diphenhydrAMINE 50 MG/ML VIAL IV PRN (02:19)
[2021-06-05] MEDS ORDERED: ONDANSETRON INJ 2 MG/ML 2 ML VIAL IV PRN (02:19)
[2021-06-05 06:15] LABS: Basophils # (auto) 0.01 K/uL (0-0.2); Basophils % (auto) 0.1 %; Eosinophils # (auto) 0.07 K/uL (0-0.5); Eosinophils % (auto) 0.7 %; Hematocrit (blood only) 29.7 % (37-47); Hemoglobin 9.8 g/dL (12.0-16.0); Immature Granulocytes # (auto) 0.04 K/uL (0.00-0.02); Immature Granulocytes % (auto) 0.4 %; Lymphocytes # (auto) 1.43 K/uL (1.2-3.4); Lymphocytes % (auto) 14.2 %; Mean Corpuscular Hemoglobin 31.6 pg (25-34); Mean Corpuscular Volume 95.8 fL (80-100); Monocytes # (auto) 0.65 K/uL (0.11-0.59); Monocytes % (auto) 6.4 %; Neutrophils # (auto) 7.89 K/uL (1.4-6.5); Neutrophils % (auto) 78.2 %; Platelet Count 138 K/uL (130-400); RDW Coefficient of Variation 13.7 % (11.5-14.5); RDW Standard Deviation 47.7 fL (36.4-46.3); White Blood Count 10.09 K/uL (4.8-10.8)
--- NOTE | 2021-06-05 07:18 | Obstetrical Progress Note ---
Date of Service June 05, 2021 Assessment & Plan (1) Encounter for care and examination after delivery: stable, doing well. routine care. adv diet, ambulate and use po pain meds. hgb noted Day #:: 1 Subjective Ambulation: limited ambulation Voiding: no voiding problems Passing Gas:: Yes Diet Tolerance:: regular diet Lochia:: Small Feeding Type:: breast feeding denies pain issues. Physical Exam Constitutional WD/WN, vitals as above Respiratory normal respiratory effort, lungs clear to auscultation Cardiovascular Rate/Rhythm: regular rate and regular rhythm Gastrointestinal (Abdomen) Inspection/Auscultation: abdomen normal to inspection and + abdominal surgical incision (c/d/i) Percussion/Palpation: abdomen soft Fundus firm 2cm down Musculoskeletal nt calves tr edema Neurologic grossly normal Psychiatric A+Ox3, euthymic affect Results & Data ([facility]) Vital Signs (Past 12 Hours) Vital Signs Temp Pulse Resp BP Pulse Ox Pulse Ox 06/05/21 02:00 98.6 F 96 H 12 94/56 L 99 99 06/04/21 23:35 98.6 F 97 H 18 90/55 L 99 06/04/21 21:36 18 99 06/04/21 20:30 18 99 06/04/21 19:30 99.1 F 96 H 18 99/63 L 99 99
[2021-06-05] MEDS: DOCUSATE SODIUM 100 MG CAP PO SCH ×2 (09:17→20:49)
[2021-06-05] MEDS: PRENATAL VITAMIN 1 TAB PO SCH (09:17)
[2021-06-05] MEDS: SIMETHICONE 80 MG CHEW PO SCH ×4 (09:17→20:49)
[2021-06-05] MEDS: FERROUS SULFATE 325 MG TAB PO SCH (09:17)
[2021-06-05] MEDS: IBUPROFEN 600 MG TAB PO PRN ×2 (09:17→22:31)
[2021-06-05] MEDS: oxyCODONE/ACETAMINOPHEN 5mg/325mg TAB PO PRN (09:17)
[2021-06-06 07:15] LABS: Hematocrit (blood only) 27.2 % (37-47)
--- NOTE | 2021-06-06 07:34 | Obstetrical Progress Note ---
Date of Service June 06, 2021 Assessment & Plan (1) Encounter for care and examination after delivery: POD 2. cont current care, ambulate Subjective Ambulation: ambulating normally Voiding: no voiding problems Passing Gas:: Yes Diet Tolerance:: regular diet Physical Exam Gastrointestinal (Abdomen) normal bowel sounds, soft, nontender, no hepatosplenomegaly (incision cdi, ext neg) Results & Data ([facility]) Vital Signs (Past 12 Hours) Vital Signs Temp Pulse Resp BP Pulse Ox 06/05/21 23:45 98.1 F 100 H 16 95/59 L 95 06/05/21 19:55 97.9 F 90 16 95/63 L 99
[2021-06-06] MEDS ORDERED: bisacodyL 10 MG SUPP PR PRN (09:12)
[2021-06-06] MEDS: MAGNESIUM HYDROXIDE SUSP 30 ML UDC PO PRN (09:52)
[2021-06-06] MEDS: oxyCODONE/ACETAMINOPHEN 5mg/325mg TAB PO PRN ×3 (09:53→21:06)
[2021-06-06] MEDS: DOCUSATE SODIUM 100 MG CAP PO SCH ×2 (09:53→21:01)
[2021-06-06] MEDS: IBUPROFEN 600 MG TAB PO PRN ×3 (09:53→21:06)
[2021-06-06] MEDS: FERROUS SULFATE 325 MG TAB PO SCH (09:53)
[2021-06-06] MEDS: SIMETHICONE 80 MG CHEW PO SCH ×5 (09:54→22:03)
[2021-06-06] MEDS: PRENATAL VITAMIN 1 TAB PO SCH (09:54)
--- NOTE | 2021-06-07 07:25 | Obstetrical Progress Note ---
Date of Service June 07, 2021 Assessment & Plan (1) Encounter for care and examination after delivery: satisfactory post-op/ recovery d/c to home today scripts for percocet and motrin sent to pharmacy follow up in 6 weeks Subjective Ambulation: ambulating normally Voiding: no voiding problems Passing Gas:: Yes Diet Tolerance:: regular diet Lochia:: Small Feeding Type:: breast feeding pain meds working well Review of Systems All systems reviewed & are unremarkable except as noted in HPI & below Physical Exam Constitutional WD/WN, vitals as above Gastrointestinal (Abdomen) Inspection/Auscultation: + abdominal surgical incision (dry and intact- no cellulitis) Psychiatric A+Ox3, euthymic affect Genitourinary OB Exam Abdomen: + fundal height Fundus: + firm and + relation to umbilicus (2 below U) no calf tenderness Results & Data ([facility]) Vital Signs (Past 12 Hours) Vital Signs Temp Pulse Resp BP 06/06/21 23:50 97.7 F 87 16 91/54 L
[2021-06-07] MEDS: DOCUSATE SODIUM 100 MG CAP PO SCH (08:46)
[2021-06-07] MEDS: SIMETHICONE 80 MG CHEW PO SCH ×2 (08:46→12:58)
[2021-06-07] MEDS: IBUPROFEN 600 MG TAB PO PRN ×2 (08:46→12:58)
[2021-06-07] MEDS: FERROUS SULFATE 325 MG TAB PO SCH (08:46)
[2021-06-07] MEDS: MAGNESIUM HYDROXIDE SUSP 30 ML UDC PO PRN (08:46)
[2021-06-07] MEDS: oxyCODONE/ACETAMINOPHEN 5mg/325mg TAB PO PRN ×2 (08:46→12:58)
[2021-06-07] MEDS: PRENATAL VITAMIN 1 TAB PO SCH (08:46)
--- NOTE | 2021-06-10 18:05 | Discharge Summary ---
Date of Service Date of admission: 06/04/21 Date of discharge: 06/07/21 Admission HPI Per Admitting Provider 30yo at 39wks on day of her admission for planned repeat c/s and desires sterilization. She denies rom, vb. +FM. Some contractions but not regular. PNC c/b 1. Prior c/s x 2 2. GDM diet controlled. PNL rh pos, ri, gbs neg OBH: prior c/s x2 GYNH: nl paps, no stds Discharge Data Consultations 06/04/21 05:43 Consult Anesthesiology Stat Procedures Performed Operation Date: 06/04/21 07:30 Actual Procedures p Repeat Low Transverse Section, Modified Keyes Bilateral Tubal Ligation - Izabel Woo MD, [facility] Hospital Course (1) Previous delivery affecting , antepartum: (2) Gestational diabetes mellitus (GDM) affecting : (3) Encounter for sterilization: The patient underwent the above stated procedures without incident and her postoperative course and recovery was uncomplicated. On her postoperative day #3 she was tolerating a regular diet, voiding spontaneously, ambulating without problem and was using oral meds for adequate pain control. Her postoperative hemoglobin was 9.0 She was given written and verbal discharge instructions and told to followup in office at 6wks. She was given appropriate pain medicine prescriptions. Coding Level of Care Code None Diagnoses Previous delivery affecting , antepartum O34.219 Gestational diabetes mellitus (GDM) affecting O24.419 Encounter for sterilization Z30.2
== END 2021-06-07 13:40 | disposition home or self-care (01) | DRG 785 ==
LOC: 4S1 05:35 → EDSTATUS 07:30 → 4E1 12:00